=== PATIENT | male | born 1980 | race Caucasian/White ===

== ENCOUNTER 2018-08-25 15:41 | Inpatient (IN) | payer MEDICARE, MEDICAID ==
[~2018-08-25] VITALS: Ht 180.3 cm; Wt 63.7 kg
[2018-08-25] MEDS ORDERED: normal saline 1000ML IV soln IV ONE ×2 (16:00→16:20)
[2018-08-25 16:42] LABS: ALANINE AMINOTRANSFERASE 16 U/L (12-78); ALBUMIN 3.4 G/DL (3.4-5.0); ALBUMIN/GLOBULIN RATIO 0.7 (1.1-1.5); ALKALINE PHOSPHATASE 173 IU/L (46-116); ANION GAP 9 (8-16); ASPARTATE AMINO TRANSFERASE 14 U/L (10-37); BILIRUBIN,TOTAL 0.4 MG/DL (0.1-1.0); BLOOD UREA NITROGEN 16 MG/DL (7-18); BUN/CREATININE RATIO 27.1 (5.4-32.0); CALCIUM 9.1 MG/DL (8.5-10.1); CHLORIDE 101 MMOL/L (99-107); CREATININE 0.59 MG/DL (0.60-1.10); GLUCOSE 94 MG/DL (70-104); POTASSIUM 3.8 MMOL/L (3.5-5.1); SODIUM 138 MMOL/L (135-145); TOTAL CARBON DIOXIDE 27.8 MMOL/L (24-32); TOTAL PROTEIN 8.5 G/DL (6.4-8.2); eGFR > 90 ML/MIN
[2018-08-25 16:46] LABS: BASOPHILS # (AUTO) 0.1 X10'3 (0-0.2); BASOPHILS % (AUTO) 0.8 % (0-1); EOSINOPHILS # (AUTO) 0.4 X10'3 (0-0.9); EOSINOPHILS % (AUTO) 2.8 % (0-6); LYMPHOCYTES # (AUTO) 2.4 X10'3 (1.1-4.8); LYMPHOCYTES % (AUTO) 17.7 % (21-51); MEAN CORPUSCULAR HEMOGLOBIN 24.9 PG (27.0-31.0); MEAN CORPUSCULAR HGB CONC 33.2 % (33.0-36.5); MEAN PLATELET VOLUME 7.6 FL (7.4-10.4); MONOCYTES # (AUTO) 0.8 X10'3 (0-0.9); MONOCYTES % (AUTO) 5.8 % (2-12); NEUTROPHILS # (AUTO) 9.9 X10'3 (1.8-7.7); NEUTROPHILS % (AUTO) 72.9 % (42-75); PLATELET COUNT 505 X10'3 (140-440); RED BLOOD COUNT 4.81 X10'6 (4.70-6.10); RED CELL DISTRIBUTION WIDTH 16.2 % (11.5-14.5); WHITE BLOOD COUNT 13.6 X10'3 (4.5-11.0)
[2018-08-25] MEDS ORDERED: IMIPENEM IV SCH (17:30)
[2018-08-25] MEDS ORDERED: NORMAL SALINE IV SCH (17:30)
[2018-08-25] MEDS ORDERED: CILASTATIN IV SCH (17:30)
[2018-08-25] MEDS: potassium cl 20mEq in 1/2 NS 1,000 ML IV SCH (17:34)
[2018-08-25] MEDS ORDERED: magnesium 4gm in 100ml NS 100 ML IV PRN (17:35)
[2018-08-25] MEDS ORDERED: HYDROcodone/acetaminophen 5mg/325mg tablet PO PRN (17:35)
[2018-08-25] MEDS ORDERED: acetaminophen 325mg tablet PO PRN (17:35)
[2018-08-25] MEDS ORDERED: magnesium 1gm/100ml D5W IVPB 100 ML IV PRN (17:35)
[2018-08-25] MEDS ORDERED: potassium Cl 20 mEq SR tablet PO PRN ×2 (17:35)
[2018-08-25] MEDS ORDERED: magnesium Cl slow-release 64mg tablet PO PRN (17:35)
[2018-08-25] MEDS ORDERED: mag hydrox/Alum hydrox/simeth 30ml oral suspension PO PRN (17:35)
[2018-08-25] MEDS ORDERED: magnesium hydroxide 30ml (MOM) UD suspension PO PRN (17:35)
[2018-08-25] MEDS ORDERED: potassium Cl 40MEQ/NS 500ml 500 ML IV PRN ×2 (17:35)
[2018-08-25] MEDS ORDERED: ondansetron/PF 4mg/2ml inj IV PRN (17:35)
[2018-08-25] MEDS: meropenem inj 1 GM in normal saline 100ml IV soln 100 ML IV SCH (18:12)
[2018-08-25] MEDS ORDERED: HYDROmorphone 1 mg/ml syringe IV ONE ×2 (18:35→20:20)
[2018-08-25] MEDS ORDERED: morphine 2 MG/ML inj. syringe IV PRN (19:05)
[2018-08-25 19:09] LABS: CLARITY,URINE SLIGHTLY CLOUDY (Clear); COLOR,URINE YELLOW (Yellow); GLUCOSE, URINE NEGATIVE (Neg); KETONES,URINE 40 mg/dl (Neg); LEUKOCYTE ESTERASE ,URINE NEGATIVE (Neg); NITRITES, URINE NEGATIVE (Neg); OCCULT BLOOD,URINE NEGATIVE (Neg); PROTEIN,URINE 100 mg/dl (Neg); UROBILINOGEN,URINE 0.2 E.U/dL (0.2-1.0)
[2018-08-25] MEDS ORDERED: BACL10TA PO (19:11)
[2018-08-25] MEDS ORDERED: FENT1PAT7 TOP (19:11)
[2018-08-25] MEDS ORDERED: DIAZ10TA PO (19:11)
[2018-08-25 19:12] LABS: UA COLLECTION TYPE FOLEY CATH
[2018-08-25 19:27] LABS: AMORPHOUS URATES 1+; BACTERIA,URINE FEW /HPF (Neg); MUCUS STRANDS MANY /LPF (Neg); RBC,URINE NONE SEEN /HPF (0-2); SQUAMOUS EPITHELIAL CELL,UR FEW /LPF (FEW); WBC,URINE 0-4 /HPF (0-4)
[2018-08-25 20:00] VITALS: BP 106/55
[2018-08-25 22:00] VITALS: BP 97/53
[2018-08-26] MEDS: meropenem inj 1 GM in normal saline 100ml IV soln 100 ML IV SCH ×3 (01:32→18:35)
[2018-08-26] MEDS ORDERED: pneumococcal 23-VAL P-sac vacc 25 mcg/0.5ml vial IMVAC ONE (01:40)
[2018-08-26] MEDS: HYDROmorphone 1 mg/ml syringe IV PRN ×6 (01:56→22:51)
[2018-08-26 02:00] VITALS: BP 104/62
[2018-08-26] MEDS: potassium cl 20mEq in 1/2 NS 1,000 ML IV SCH ×2 (03:34→07:46)
[2018-08-26 06:00] VITALS: BP 105/64
[2018-08-26] MEDS: enoxaparin 40mg/0.4ml syringe SUBCUT SCH (07:21)
[2018-08-26 07:26] LABS: BASOPHILS # (AUTO) 0.1 X10'3 (0-0.2); BASOPHILS % (AUTO) 0.8 % (0-1); EOSINOPHILS # (AUTO) 0.3 X10'3 (0-0.9); EOSINOPHILS % (AUTO) 4.1 % (0-6); HEMATOCRIT 30.8 % (42.0-52.0); HEMOGLOBIN 9.9 g/dl (14.0-17.9); LYMPHOCYTES # (AUTO) 1.6 X10'3 (1.1-4.8); LYMPHOCYTES % (AUTO) 23.3 % (21-51); MEAN CORPUSCULAR HEMOGLOBIN 24.2 PG (27.0-31.0); MEAN CORPUSCULAR HGB CONC 32.2 % (33.0-36.5); MEAN CORPUSCULAR VOLUME 75.3 FL (78-98); MEAN PLATELET VOLUME 6.9 FL (7.4-10.4); MONOCYTES # (AUTO) 0.7 X10'3 (0-0.9); MONOCYTES % (AUTO) 9.8 % (2-12); NEUTROPHILS # (AUTO) 4.3 X10'3 (1.8-7.7); PLATELET COUNT 366 X10'3 (140-440); RED BLOOD COUNT 4.09 X10'6 (4.70-6.10); RED CELL DISTRIBUTION WIDTH 17.4 % (11.5-14.5)
[2018-08-26 07:55] LABS: ALANINE AMINOTRANSFERASE 16 U/L (12-78); ALBUMIN 2.3 G/DL (3.4-5.0); ALBUMIN/GLOBULIN RATIO 0.6 (1.1-1.5); ALKALINE PHOSPHATASE 136 IU/L (46-116); ANION GAP 6 (8-16); ASPARTATE AMINO TRANSFERASE 16 U/L (10-37); BILIRUBIN,TOTAL 0.2 MG/DL (0.1-1.0); BLOOD UREA NITROGEN 14 MG/DL (7-18); BUN/CREATININE RATIO 23.7 (5.4-32.0); CALCIUM 7.8 MG/DL (8.5-10.1); CHLORIDE 108 MMOL/L (99-107); CREATININE 0.59 MG/DL (0.60-1.10); GLUCOSE 99 MG/DL (70-104); MAGNESIUM 1.7 MG/DL (1.5-2.4); POTASSIUM 4.7 MMOL/L (3.5-5.1); SODIUM 142 MMOL/L (135-145); TOTAL CARBON DIOXIDE 28.3 MMOL/L (24-32); TOTAL PROTEIN 6.4 G/DL (6.4-8.2); eGFR > 90 ML/MIN
[2018-08-26] MEDS: K and/or MAG REPLACEMENT MC SCH (08:00)
[2018-08-26 11:00] VITALS: BP 92/56
[2018-08-26 15:00] VITALS: BP 95/44
[2018-08-26] MEDS ORDERED: sennosides 8.6mg tablet PO PRN (15:50)
[2018-08-26 19:00] VITALS: BP 97/44
[2018-08-26] MEDS: baclofen 10mg tablet PO SCH (20:28)
[2018-08-26] MEDS: lactobacillus rhamnosus 10,000 MMU CELLS/CAPSULE PO SCH (20:28)
[2018-08-26] MEDS: diazepam 5mg tablet PO SCH (20:29)
[2018-08-26 22:00] VITALS: BP 95/55
[2018-08-27] MEDS: meropenem inj 1 GM in normal saline 100ml IV soln 100 ML IV SCH ×3 (01:25→17:41)
[2018-08-27] MEDS: HYDROmorphone 1 mg/ml syringe IV PRN ×5 (02:56→21:40)
[2018-08-27 07:00] VITALS: BP 115/55
[2018-08-27 07:22] LABS: BASOPHILS # (AUTO) 0.2 X10'3 (0-0.2); BASOPHILS % (AUTO) 2.4 % (0-1); EOSINOPHILS # (AUTO) 0.3 X10'3 (0-0.9); EOSINOPHILS % (AUTO) 4.1 % (0-6); HEMATOCRIT 35.9 % (42.0-52.0); HEMOGLOBIN 11.5 g/dl (14.0-17.9); LYMPHOCYTES # (AUTO) 2.2 X10'3 (1.1-4.8); LYMPHOCYTES % (AUTO) 29.8 % (21-51); MEAN CORPUSCULAR HEMOGLOBIN 24.5 PG (27.0-31.0); MEAN CORPUSCULAR HGB CONC 32.1 % (33.0-36.5); MEAN CORPUSCULAR VOLUME 76.4 FL (78-98); MEAN PLATELET VOLUME 7.9 FL (7.4-10.4); MONOCYTES # (AUTO) 0.7 X10'3 (0-0.9); MONOCYTES % (AUTO) 10.1 % (2-12); NEUTROPHILS # (AUTO) 3.9 X10'3 (1.8-7.7); NEUTROPHILS % (AUTO) 53.6 % (42-75); PLATELET COUNT 376 X10'3 (140-440); RED CELL DISTRIBUTION WIDTH 17.7 % (11.5-14.5); WHITE BLOOD COUNT 7.3 X10'3 (4.5-11.0)
[2018-08-27 07:40] LABS: ALANINE AMINOTRANSFERASE 16 U/L (12-78); ALBUMIN 2.8 G/DL (3.4-5.0); ALBUMIN/GLOBULIN RATIO 0.6 (1.1-1.5); ALKALINE PHOSPHATASE 158 IU/L (46-116); ANION GAP 4 (8-16); ASPARTATE AMINO TRANSFERASE 13 U/L (10-37); BILIRUBIN,TOTAL 0.2 MG/DL (0.1-1.0); BLOOD UREA NITROGEN 16 MG/DL (7-18); BUN/CREATININE RATIO 28.1 (5.4-32.0); CALCIUM 8.5 MG/DL (8.5-10.1); CHLORIDE 103 MMOL/L (99-107); CREATININE 0.57 MG/DL (0.60-1.10); GLUCOSE 79 MG/DL (70-104); MAGNESIUM 1.8 MG/DL (1.5-2.4); POTASSIUM 4.7 MMOL/L (3.5-5.1); SODIUM 137 MMOL/L (135-145); TOTAL CARBON DIOXIDE 29.7 MMOL/L (24-32); TOTAL PROTEIN 7.8 G/DL (6.4-8.2); eGFR > 90 ML/MIN
[2018-08-27] MEDS: baclofen 10mg tablet PO SCH ×3 (07:56→21:04)
[2018-08-27] MEDS: multivitamins, therapeutics tablet PO SCH (07:56)
[2018-08-27] MEDS: lactobacillus rhamnosus 10,000 MMU CELLS/CAPSULE PO SCH ×2 (07:56→21:04)
[2018-08-27] MEDS: diazepam 5mg tablet PO SCH ×3 (07:57→21:04)
[2018-08-27] MEDS: enoxaparin 40mg/0.4ml syringe SUBCUT SCH (08:00)
[2018-08-27] MEDS: K and/or MAG REPLACEMENT MC SCH (08:00)
[2018-08-27] MEDS ORDERED: diphenhydrAMINE 50 mg/ml inj IV PRN (09:45)
[2018-08-27] MEDS ORDERED: vancomycin/NS 1 GM ADD-VANTAGE 250 ML IV SCH (10:00)
[2018-08-27] MEDS: polyethylene glycol 3350 17gm powd pack PO SCH (10:25)
[2018-08-27 11:00] VITALS: BP 91/53
[2018-08-27 11:04] LABS: CLARITY,URINE CLEAR (Clear); COLOR,URINE YELLOW (Yellow); GLUCOSE, URINE NEGATIVE (Neg); KETONES,URINE NEGATIVE (Neg); LEUKOCYTE ESTERASE ,URINE NEGATIVE (Neg); NITRITES, URINE NEGATIVE (Neg); OCCULT BLOOD,URINE NEGATIVE (Neg); PROTEIN,URINE NEGATIVE (Neg); UA COLLECTION TYPE FOLEY CATH; UROBILINOGEN,URINE 0.2 E.U/dL (0.2-1.0)
[2018-08-27 15:00] VITALS: BP 92/75
[2018-08-27 19:00] VITALS: BP 106/60
[2018-08-27] MEDS: linezolid 600mg/300ml PREMIX 300 ML IV SCH (21:04)
[2018-08-27 23:00] VITALS: BP 92/52
[2018-08-28] VITALS (9 sets, daily range): BP systolic 87–133; BP diastolic 48–77
[2018-08-28] MEDS: HYDROmorphone 1 mg/ml syringe IV PRN ×6 (01:28→23:57)
[2018-08-28] MEDS: meropenem inj 1 GM in normal saline 100ml IV soln 100 ML IV SCH ×3 (01:28→17:15)
[2018-08-28] MEDS: K and/or MAG REPLACEMENT MC SCH (08:00)
[2018-08-28] MEDS: polyethylene glycol 3350 17gm powd pack PO SCH (09:03)
[2018-08-28] MEDS: multivitamins, therapeutics tablet PO SCH (09:04)
[2018-08-28] MEDS: diazepam 5mg tablet PO SCH ×3 (09:05→21:49)
[2018-08-28] MEDS: lactobacillus rhamnosus 10,000 MMU CELLS/CAPSULE PO SCH ×2 (09:05→19:47)
[2018-08-28] MEDS: baclofen 10mg tablet PO SCH ×3 (09:06→21:49)
[2018-08-28] MEDS: enoxaparin 40mg/0.4ml syringe SUBCUT SCH (09:07)
[2018-08-28 09:08] LABS: BASOPHILS % (AUTO) 0.5 % (0-1); EOSINOPHILS # (AUTO) 0.3 X10'3 (0-0.9); EOSINOPHILS % (AUTO) 3.7 % (0-6); HEMATOCRIT 32.2 % (42.0-52.0); HEMOGLOBIN 10.4 g/dl (14.0-17.9); LYMPHOCYTES # (AUTO) 1.8 X10'3 (1.1-4.8); LYMPHOCYTES % (AUTO) 25.6 % (21-51); MEAN CORPUSCULAR HEMOGLOBIN 24.5 PG (27.0-31.0); MEAN CORPUSCULAR HGB CONC 32.1 % (33.0-36.5); MEAN CORPUSCULAR VOLUME 76.2 FL (78-98); MEAN PLATELET VOLUME 7.3 FL (7.4-10.4); MONOCYTES # (AUTO) 0.8 X10'3 (0-0.9); MONOCYTES % (AUTO) 11.1 % (2-12); NEUTROPHILS # (AUTO) 4.2 X10'3 (1.8-7.7); NEUTROPHILS % (AUTO) 59.1 % (42-75); PLATELET COUNT 375 X10'3 (140-440); RED BLOOD COUNT 4.23 X10'6 (4.70-6.10); WHITE BLOOD COUNT 7.1 X10'3 (4.5-11.0)
[2018-08-28] MEDS: linezolid 600mg/300ml PREMIX 300 ML IV SCH ×2 (09:08→19:47)
[2018-08-28 09:15] LABS: ALBUMIN 2.5 G/DL (3.4-5.0); ANION GAP 5 (8-16); BLOOD UREA NITROGEN 26 MG/DL (7-18); BUN/CREATININE RATIO 44.8 (5.4-32.0); CALCIUM 8.3 MG/DL (8.5-10.1); CHLORIDE 103 MMOL/L (99-107); CREATININE 0.58 MG/DL (0.60-1.10); GLUCOSE 98 MG/DL (70-104); MAGNESIUM 1.8 MG/DL (1.5-2.4); POTASSIUM 4.3 MMOL/L (3.5-5.1); SODIUM 140 MMOL/L (135-145); TOTAL CARBON DIOXIDE 32.5 MMOL/L (24-32); eGFR > 90 ML/MIN
[2018-08-28] MEDS ORDERED: VANCOMYCIN LEVEL IV NR (09:30)
[2018-08-29] VITALS (7 sets, daily range): BP systolic 96–134; BP diastolic 55–77
[2018-08-29] MEDS: meropenem inj 1 GM in normal saline 100ml IV soln 100 ML IV SCH ×3 (00:57→17:33)
[2018-08-29 07:32] LABS: ALBUMIN 2.5 G/DL (3.4-5.0); ANION GAP 6 (8-16); BLOOD UREA NITROGEN 22 MG/DL (7-18); BUN/CREATININE RATIO 37.3 (5.4-32.0); CALCIUM 8.2 MG/DL (8.5-10.1); CHLORIDE 103 MMOL/L (99-107); CREATININE 0.59 MG/DL (0.60-1.10); GLUCOSE 101 MG/DL (70-104); MAGNESIUM 1.7 MG/DL (1.5-2.4); POTASSIUM 4.4 MMOL/L (3.5-5.1); SODIUM 140 MMOL/L (135-145); TOTAL CARBON DIOXIDE 30.9 MMOL/L (24-32); eGFR > 90 ML/MIN
[2018-08-29] MEDS: linezolid 600mg/300ml PREMIX 300 ML IV SCH (07:39)
[2018-08-29] MEDS: baclofen 10mg tablet PO SCH ×3 (07:42→21:43)
[2018-08-29] MEDS: lactobacillus rhamnosus 10,000 MMU CELLS/CAPSULE PO SCH ×2 (07:42→20:16)
[2018-08-29] MEDS: multivitamins, therapeutics tablet PO SCH (07:42)
[2018-08-29] MEDS: diazepam 5mg tablet PO SCH ×3 (07:43→21:42)
[2018-08-29] MEDS: polyethylene glycol 3350 17gm powd pack PO SCH (07:43)
[2018-08-29] MEDS: HYDROmorphone 1 mg/ml syringe IV PRN ×4 (07:44→21:42)
[2018-08-29] MEDS: K and/or MAG REPLACEMENT MC SCH (08:00)
[2018-08-29] MEDS: enoxaparin 40mg/0.4ml syringe SUBCUT SCH (08:00)
[2018-08-29] MEDS: linezolid 600mg tablet PO SCH (20:17)
[2018-08-30] MEDS: meropenem inj 1 GM in normal saline 100ml IV soln 100 ML IV SCH ×3 (00:39→17:18)
[2018-08-30] MEDS: HYDROmorphone 1 mg/ml syringe IV PRN ×5 (01:48→21:02)
[2018-08-30 02:53] VITALS: BP 98/54
[2018-08-30 05:10] LABS: BASOPHILS % (AUTO) 0.8 % (0-1); EOSINOPHILS # (AUTO) 0.4 X10'3 (0-0.9); EOSINOPHILS % (AUTO) 6.5 % (0-6); HEMATOCRIT 32.1 % (42.0-52.0); HEMOGLOBIN 10.4 g/dl (14.0-17.9); LYMPHOCYTES # (AUTO) 1.6 X10'3 (1.1-4.8); LYMPHOCYTES % (AUTO) 25.8 % (21-51); MEAN CORPUSCULAR HEMOGLOBIN 24.5 PG (27.0-31.0); MEAN CORPUSCULAR HGB CONC 32.2 % (33.0-36.5); MEAN PLATELET VOLUME 6.9 FL (7.4-10.4); MONOCYTES # (AUTO) 0.7 X10'3 (0-0.9); MONOCYTES % (AUTO) 11.2 % (2-12); NEUTROPHILS # (AUTO) 3.5 X10'3 (1.8-7.7); NEUTROPHILS % (AUTO) 55.7 % (42-75); PLATELET COUNT 354 X10'3 (140-440); RED BLOOD COUNT 4.23 X10'6 (4.70-6.10); RED CELL DISTRIBUTION WIDTH 16.8 % (11.5-14.5); WHITE BLOOD COUNT 6.3 X10'3 (4.5-11.0)
[2018-08-30 05:18] LABS: ALBUMIN 2.5 G/DL (3.4-5.0); ANION GAP 5 (8-16); BLOOD UREA NITROGEN 18 MG/DL (7-18); CHLORIDE 104 MMOL/L (99-107); CREATININE 0.53 MG/DL (0.60-1.10); GLUCOSE 98 MG/DL (70-104); MAGNESIUM 1.7 MG/DL (1.5-2.4); POTASSIUM 4.3 MMOL/L (3.5-5.1); SODIUM 142 MMOL/L (135-145); TOTAL CARBON DIOXIDE 33.4 MMOL/L (24-32); eGFR > 90 ML/MIN
[2018-08-30 06:00] VITALS: BP 102/58
[2018-08-30] MEDS: polyethylene glycol 3350 17gm powd pack PO SCH (07:17)
[2018-08-30] MEDS: multivitamins, therapeutics tablet PO SCH (07:19)
[2018-08-30] MEDS: linezolid 600mg tablet PO SCH ×2 (07:20→20:07)
[2018-08-30] MEDS: lactobacillus rhamnosus 10,000 MMU CELLS/CAPSULE PO SCH ×2 (07:20→20:07)
[2018-08-30] MEDS: baclofen 10mg tablet PO SCH ×3 (07:20→20:07)
[2018-08-30] MEDS: diazepam 5mg tablet PO SCH ×3 (07:20→20:07)
[2018-08-30] MEDS: K and/or MAG REPLACEMENT MC SCH (08:00)
[2018-08-30] MEDS: enoxaparin 40mg/0.4ml syringe SUBCUT SCH (08:00)
[2018-08-30 11:00] VITALS: BP_SYST 137; BP_SYST 91; BP_DIAS 55; BP_DIAS 82
[2018-08-30 15:00] VITALS: BP 105/62
[2018-08-30 18:00] VITALS: BP 110/63
[2018-08-30 22:00] VITALS: BP 99/58
[2018-08-31] VITALS: BP 96/54
[2018-08-31] MEDS: HYDROmorphone 1 mg/ml syringe IV PRN ×5 (01:05→22:07)
[2018-08-31] MEDS: meropenem inj 1 GM in normal saline 100ml IV soln 100 ML IV SCH ×3 (01:26→17:38)
[2018-08-31 07:30] VITALS: BP 108/56
[2018-08-31] MEDS: multivitamins, therapeutics tablet PO SCH (08:00)
[2018-08-31] MEDS: polyethylene glycol 3350 17gm powd pack PO SCH ×2 (08:00→14:40)
[2018-08-31] MEDS: enoxaparin 40mg/0.4ml syringe SUBCUT SCH (08:00)
[2018-08-31] MEDS: baclofen 10mg tablet PO SCH ×3 (08:00→20:59)
[2018-08-31] MEDS: K and/or MAG REPLACEMENT MC SCH (08:00)
[2018-08-31] MEDS: diazepam 5mg tablet PO SCH ×3 (08:00→20:59)
[2018-08-31 09:28] LABS: ALBUMIN 2.6 G/DL (3.4-5.0); ANION GAP 7 (8-16); BLOOD UREA NITROGEN 23 MG/DL (7-18); BUN/CREATININE RATIO 38.3 (5.4-32.0); CALCIUM 8.5 MG/DL (8.5-10.1); CHLORIDE 104 MMOL/L (99-107); GLUCOSE 109 MG/DL (70-104); MAGNESIUM 1.5 MG/DL (1.5-2.4); POTASSIUM 4.4 MMOL/L (3.5-5.1); SODIUM 143 MMOL/L (135-145); eGFR > 90 ML/MIN
[2018-08-31] MEDS: lactobacillus rhamnosus 10,000 MMU CELLS/CAPSULE PO SCH ×2 (09:31→20:58)
[2018-08-31 11:00] VITALS: BP 101/58
[2018-08-31] MEDS: linezolid 600mg tablet PO SCH ×2 (12:04→20:59)
[2018-08-31 16:27] LABS: CLARITY,URINE CLEAR (Clear); COLOR,URINE YELLOW (Yellow); GLUCOSE, URINE NEGATIVE (Neg); KETONES,URINE NEGATIVE (Neg); LEUKOCYTE ESTERASE ,URINE NEGATIVE (Neg); NITRITES, URINE NEGATIVE (Neg); OCCULT BLOOD,URINE NEGATIVE (Neg); PROTEIN,URINE NEGATIVE (Neg); UROBILINOGEN,URINE 0.2 E.U/dL (0.2-1.0)
[2018-08-31 16:37] LABS: UA COLLECTION TYPE NON-SPECIFIED
[2018-08-31 18:00] VITALS: BP 111/57
[2018-09-01] VITALS: BP 97/56
[2018-09-01] MEDS: meropenem inj 1 GM in normal saline 100ml IV soln 100 ML IV SCH ×2 (00:28→09:02)
[2018-09-01] MEDS: HYDROmorphone 1 mg/ml syringe IV PRN ×5 (02:20→14:42)
[2018-09-01 06:06] LABS: ALBUMIN 2.6 G/DL (3.4-5.0); ANION GAP 6 (8-16); BLOOD UREA NITROGEN 21 MG/DL (7-18); BUN/CREATININE RATIO 31.8 (5.4-32.0); CALCIUM 8.2 MG/DL (8.5-10.1); CHLORIDE 105 MMOL/L (99-107); CREATININE 0.66 MG/DL (0.60-1.10); GLUCOSE 94 MG/DL (70-104); MAGNESIUM 1.6 MG/DL (1.5-2.4); POTASSIUM 4.2 MMOL/L (3.5-5.1); SODIUM 142 MMOL/L (135-145); TOTAL CARBON DIOXIDE 31.5 MMOL/L (24-32); eGFR > 90 ML/MIN
[2018-09-01] MEDS: enoxaparin 40mg/0.4ml syringe SUBCUT SCH (08:00)
[2018-09-01 08:41] VITALS: BP 115/60
[2018-09-01] MEDS: K and/or MAG REPLACEMENT MC SCH (08:44)
[2018-09-01] MEDS: lactobacillus rhamnosus 10,000 MMU CELLS/CAPSULE PO SCH (08:59)
[2018-09-01] MEDS: baclofen 10mg tablet PO SCH ×2 (08:59→13:20)
[2018-09-01] MEDS: polyethylene glycol 3350 17gm powd pack PO SCH (09:00)
[2018-09-01] MEDS: multivitamins, therapeutics tablet PO SCH (09:00)
[2018-09-01] MEDS: diazepam 5mg tablet PO SCH ×2 (09:01→13:20)
[2018-09-01] MEDS: linezolid 600mg tablet PO SCH (09:01)
[2018-09-01] MEDS ORDERED: LINE600T32 PO (09:57)
[2018-09-01 18:30] VITALS: BP 106/61
== END 2018-09-01 20:00 | disposition home or self-care (01) | DRG 871 ==
LOC: ER 15:41 → ED HOLD 17:34 → PCU 3S 21:18 → SUR 3N 08-30 23:59
PROVIDERS: ADMIT Internal Medicine; ATTEND Family Medicine
PROC: 3E02340 Introduction of Influenza Vaccine into Muscle, Percutaneous Approach (ICD-10-PCS; principal; 2018-08-28)
PROC: 3E0234Z Introduction of Serum, Toxoid and Vaccine into Muscle, Percutaneous Approach (ICD-10-PCS; 2018-08-28)
DX: A41.9 Sepsis, unspecified organism (principal); L89.153 Pressure ulcer of sacral region, stage 3; N39.0 Urinary tract infection, site not specified; G82.20 Paraplegia, unspecified; L03.317 Cellulitis of buttock; B96.5 Pseudomonas (aeruginosa) (mallei) (pseudomallei) as the cause of diseases classified elsewhere; Z93.3 Colostomy status; B95.8 Unspecified staphylococcus as the cause of diseases classified elsewhere; K59.00 Constipation, unspecified; L89.159 Pressure ulcer of sacral region, unspecified stage; D64.9 Anemia, unspecified; F17.200 Nicotine dependence, unspecified, uncomplicated; N31.9 Neuromuscular dysfunction of bladder, unspecified; Z88.0 Allergy status to penicillin; Z79.899 Other long term (current) drug therapy; Z23 Encounter for immunization
CPT/HCPCS: 36415; 80048; 80053; 81001; 81003; 83605; 83735; 84145; 85025; 87040; 87070; 87077; 87186; 99285; A4421; A6251; A6257; G0378; J0743; J1170; J1200; J1650; J2020; J2185; J3370; J7030; Q2037

== ENCOUNTER 2019-05-29 22:30 | Inpatient (IN) | payer MEDICARE, MEDICAID ==
[~2019-05-29] VITALS: Ht 182.9 cm; Wt 61.4 kg
[~2019-05-29 22:30] MED LIST: BACL10TA PO; DIAZ10TA PO; FENT1PAT7 TOP; LINE600T14 PO
[2019-05-29] MEDS ORDERED: morphine 4 MG/ML inj SYRINge IV STA (23:12)
[2019-05-29] MEDS ORDERED: ondansetron/PF 4mg/2ml inj IV STA (23:12)
[2019-05-29] MEDS ORDERED: normal saline 1000ML IV soln IVB ONE (23:15)
--- NOTE | 2019-05-29 23:41 | NUR ---
WOUNDS CLEANED WITH NS, ROUGHLY 400MLS
[2019-05-30] MEDS ORDERED: NO HOME MEDS (00:45)
[2019-05-30 01:26] LABS: BASOPHILS # (AUTO) 0.1 X10'3 (0-0.2); BASOPHILS % (AUTO) 0.8 % (0-1); EOSINOPHILS # (AUTO) 0.2 X10'3 (0-0.9); EOSINOPHILS % (AUTO) 3.3 % (0-6); HEMATOCRIT 29.5 % (42.0-52.0); HEMOGLOBIN 9.4 g/dl (14.0-17.9); LYMPHOCYTES # (AUTO) 1.9 X10'3 (1.1-4.8); LYMPHOCYTES % (AUTO) 26.5 % (21-51); MEAN CORPUSCULAR HEMOGLOBIN 22.8 PG (27.0-31.0); MEAN CORPUSCULAR HGB CONC 31.8 g/dL (33.0-36.5); MEAN CORPUSCULAR VOLUME 71.6 FL (78-98); MEAN PLATELET VOLUME 6.9 FL (7.4-10.4); MONOCYTES # (AUTO) 0.8 X10'3 (0-0.9); NEUTROPHILS # (AUTO) 4.1 X10'3 (1.8-7.7); NEUTROPHILS % (AUTO) 58.4 % (42-75); PLATELET COUNT 371 X10'3 (140-440); RED BLOOD COUNT 4.12 X10'6 (4.70-6.10); RED CELL DISTRIBUTION WIDTH 19.5 % (11.5-14.5); WHITE BLOOD COUNT 7.1 X10'3 (4.5-11.0)
[2019-05-30] MEDS ORDERED: HYDROmorphone inj. 0.5 MG/0.5 ML DISP.SYRIN IV PRN ×2 (01:30→01:55)
[2019-05-30] MEDS ORDERED: acetaminophen 325mg tablet PO PRN (01:30)
[2019-05-30] MEDS ORDERED: HYDROmorphone 1 mg/ml syringe IV PRN ×2 (01:30→01:58)
[2019-05-30] MEDS ORDERED: mag hydrox/Alum hydrox/simeth 30ml oral suspension PO PRN (01:30)
[2019-05-30] MEDS ORDERED: vancomycin inj 1,000 MG in normal saline 250ml IV soln 250 ML IV ONE (01:40)
[2019-05-30 01:43] LABS: ALANINE AMINOTRANSFERASE 11 U/L (12-78); ALBUMIN 2.4 G/DL (3.4-5.0); ALBUMIN/GLOBULIN RATIO 0.5 (1.1-1.5); ALKALINE PHOSPHATASE 127 IU/L (46-116); ANION GAP 7 (8-16); ASPARTATE AMINO TRANSFERASE 10 U/L (10-37); BILIRUBIN,TOTAL 0.2 MG/DL (0.1-1.0); BLOOD UREA NITROGEN 13 MG/DL (7-18); BUN/CREATININE RATIO 24.1 (5.4-32.0); CALCIUM 8.1 MG/DL (8.5-10.1); CHLORIDE 107 MMOL/L (99-107); CREATININE 0.54 MG/DL (0.60-1.10); GLUCOSE 96 MG/DL (70-104); POTASSIUM 3.6 MMOL/L (3.5-5.1); SODIUM 142 MMOL/L (135-145); TOTAL CARBON DIOXIDE 27.9 MMOL/L (24-32); TOTAL PROTEIN 7.3 G/DL (6.4-8.2); eGFR > 90 ML/MIN
[2019-05-30] MEDS: vancomycin/NS 1 GM ADD-VANTAGE 250 ML IV ONE ×2 (02:10→02:25)
--- NOTE | 2019-05-30 03:00 | NUR ---
I have rec'd report from WELDER ASSEMBLER who stated she took all pictures needed. She stated Dr. Canales had ordered vanco and then canceled it. pt arrived via [place] and transferred into bed. vitals stable. Pt hungry, snacks given. pt stated his bother helps take care of him. Pt also wants to be tested for all STDs, stated he had a cold sore or herpes on lip that is now gone. It is unclear whether he engages in risky sexual behavior, although he stated he was around someone with herpes. He also wants abx to "kill whatever bugs he has that we don't even know about before he goes home".
[2019-05-30] MEDS: LORazepam 2 mg/ml vial IV PRN ×2 (03:13→08:54)
[2019-05-30 03:16] VITALS: BP 105/59
--- NOTE | 2019-05-30 03:26 | NUR ---
spoke with Dr. toledo re ABX. He doesn't feel pt needs it at this time, Patient is insistent on getting it. MD notified, waiting for response.
[2019-05-30] MEDS: diphenhydrAMINE 50 mg/ml inj IV PRN (03:39)
[2019-05-30] MEDS ORDERED: vancomycin/NS 1 GM ADD-VANTAGE 250 ML IV ONE (03:40)
--- NOTE | 2019-05-30 03:47 | NUR ---
MD Canales stated to give vanco with 50 mg benadryl prior
--- NOTE | 2019-05-30 04:30 | NUR ---
pt trying to rest, no sign of yo at this time
--- NOTE | 2019-05-30 06:15 | NUR ---
Problems reprioritized. Patient report given, questions answered & plan of care reviewed with Gustavo Ricardo.
[2019-05-30 06:30] VITALS: BP 115/72
--- NOTE | 2019-05-30 06:32 | NUR ---
Patient in room PCU 3010. I have received report from Kim RUSH and had the opportunity to ask questions and assume patient care.
[2019-05-30] MEDS ORDERED: CefTRIAXone/D5W-Rocephin 1gm 50 ML IV SCH (08:00)
[2019-05-30] MEDS: lactobacillus rhamnosus 10,000 MMU CELLS/CAPSULE PO SCH ×2 (08:54→19:05)
[2019-05-30] MEDS: HYDROmorphone 1 mg/ml syringe IV PRN ×4 (10:08→23:29)
[2019-05-30 11:00] VITALS: BP 110/91
--- NOTE | 2019-05-30 11:32 | NUR ---
Patient is IV in left hand placed at [facility] on 05/29/19. Patient refuses to have no IV placed at this time, and did state that he is a hard stick. If current IV stops working, will page PICC nurse for extended.
[2019-05-30] MEDS ORDERED: vancomycin/NS 1 GM ADD-VANTAGE 250 ML IV SCH (12:00)
--- NOTE | 2019-05-30 12:00 | NUR ---
PRESSURE ULCER EDUCATION: DEFINITION: A pressure ulcer is an area of skin that breaks down when you stay in one position too long. The constant pressure against the skin reduces the blood flow to that area and the affected tissue dies. CAUSES: "Being bedridden or in a wheelchair "Fragile skin "Having a chronic condition, such as diabetes or vascular disease "Inability to move certain parts of your body without assistance "Older age "Incontinence of urine or stool SYMPTOMS: "A reddened area that DOES NOT turn white when pressed on - this can be the beginning of a pressure ulcer "A blister, deep sore or a crater - these can be advanced pressure ulcers FIRST AID: "Relieve the pressure on this area "Keep the area clean and dry "Call your primary doctor if you see any of the above symptoms "DO NOT massage the area "DO NOT use a donut shaped or ring shaped pillow- these actually interfere with the blood flow and cause complications PREVENTION: "Check for pressure ulcers everyday "Change position at least every two hours to relieve pressure "Use items that help relieve pressure- pillows, sheepskin, foam padding, and powders. "Keep skin clean and dry "Eat healthy well balanced meals "Exercise daily IF YOU SEE ANY OF THESE SYMPTOMS WHILE IN THE HOSPITAL - TELL YOUR NURSE IMMEDIATELY. IF YOU SEE ANY OF THESE SYMPTOMS WHILE AT HOME OR HAVE ANY QUESTIONS OR CONCERNS ABOUT PRESSURE ULCERS - CALL YOUR PRIMARY DOCTOR IMMEDIATELY. Addendum: 05/30/19 at 1200 by Mkiey Begum RN Amended: Links added.
[2019-05-30 15:00] VITALS: BP 96/61
--- NOTE | 2019-05-30 15:00 | NUR ---
Extended PIV inserted to left upper arm x 1 attempt using ultrasound. Karla well Addendum: 05/30/19 at 1710 by Rukhsana Cordova RN Amended: Links added.
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
[2019-05-30] MEDS: clindamycin 600mg/D5W 50ml 50 ML IV SCH ×2 (15:59→23:51)
--- NOTE | 2019-05-30 16:02 | NUR ---
Patient is refusing his Cleocin antibiotic and is noncompliant with care and medications. Paged Nola PAGER ID: [phone] MESSAGE: Ling blackmon [phone]. Baldomero Anand 3010. ANNIE that patient is refusing Cleocin antibiotic and would like to speak to you about his medications when you have the chance. Thank you
[2019-05-30] MEDS: LORazepam 1 MG tablet PO PRN ×2 (16:17→20:19)
--- NOTE | 2019-05-30 17:47 | NUR ---
Patient wanted to speak with this nurse regarding medications, wound healing, and becoming "stir crazy." This RN and another nurse went and spoke to patient. Patient needed lots of reminding regarding MD's orders, and the purpose- education provided. Also offered the patient books, magazines, and if he wanted to speak to hospital director of development and marketing. Patient refused. Repositioned patient as well to help make him more comfortable. Patient also is stating that he does not believe medications were given, specifically ativan and dilaudid, when they were. Will pass onto retail shift supervisor that I recommend that nurses have a witness when they go to speak with him regarding health concerns/medications, etc.
--- NOTE | 2019-05-30 18:16 | NUR ---
Problems reprioritized. Patient report given, questions answered & plan of care reviewed with Kim RUSH and Nilda RUSH.
--- NOTE | 2019-05-30 18:21 | NUR ---
Patient in room PCU 3010. I have received report from Ling RUSH and had the opportunity to ask questions and assume patient care.
[2019-05-30] MEDS: ondansetron/PF 4mg/2ml inj IV PRN (18:59)
[2019-05-30 19:00] VITALS: BP 104/53
[2019-05-30 22:00] VITALS: BP 121/62
[2019-05-31] MEDS: LORazepam 1 MG tablet PO PRN ×3 (00:40→16:55)
[2019-05-31] MEDS: ondansetron/PF 4mg/2ml inj IV PRN ×3 (01:03→18:51)
[2019-05-31 02:00] VITALS: BP 105/70
[2019-05-31] MEDS ORDERED: VANCOMYCIN LEVEL IV ONE (03:30)
[2019-05-31] MEDS: HYDROmorphone 1 mg/ml syringe IV PRN ×5 (03:33→21:23)
--- NOTE | 2019-05-31 05:17 | NUR ---
Patient has gotten very little sleep throughout the night. He has been on his call light about every ten minutes. He asks for pain and anxiety medication very frequently, always way before they are due and is reminded frequently of his orders and times are written on the board of when his next available doses are due. He is very forgetful and is reoriented often. He states that he is bored and that is part of the reason that he keeps calling and he is educated on appropriate use of the call light system. Wounds dressings changed several times during the shift due to patient moving around in bed frequently and dressings coming undone. Otherwise patient has been stable. Will continue to monitor.
--- NOTE | 2019-05-31 05:43 | NUR ---
Orientee documentation: I have reviewed and agree with all interventions, assessments performed and documented by Nilda RUSH. Orientee Medication Administration: For this medication-pass time frame, all medication were reviewed, dispensed, administered and documented per hospital policy by Nilda RUSH.
--- NOTE | 2019-05-31 06:23 | NUR ---
Problems reprioritized. Patient report given, questions answered & plan of care reviewed with Ronit RUSH.
--- NOTE | 2019-05-31 06:35 | NUR ---
Patient in room PCU 3010. I have received report from Kim RUSH and had the opportunity to ask questions and assume patient care.
[2019-05-31 07:00] VITALS: BP 110/67
[2019-05-31] MEDS: JUVEN Smoothie Arginine/Glut./Ca2+Bmb (Juven 19.3pkt) 240ml cup PO SCH ×2 (07:30→12:30)
[2019-05-31] MEDS: clindamycin 600mg/D5W 50ml 50 ML IV SCH (08:00)
[2019-05-31] MEDS: lactobacillus rhamnosus 10,000 MMU CELLS/CAPSULE PO SCH ×2 (08:02→19:54)
--- NOTE | 2019-05-31 08:40 | NUR ---
Pt refused Clindamycin despite pt education. Dr. Vaca is aware.
[2019-05-31] MEDS ORDERED: pneumococcal 23-VAL P-sac vacc 25 mcg/0.5ml vial IMVAC ONE (10:00)
[2019-05-31] MEDS ORDERED: HYDROcodone/acetaminophen 5mg/325mg tablet PO PRN (10:30)
[2019-05-31 11:00] VITALS: BP 119/58
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
--- NOTE | 2019-05-31 12:07 | NUR ---
Problems reprioritized. Patient report given, questions answered & plan of care reviewed with Amaury RUSH.
[2019-05-31] MEDS: HYDROcodone/acetaminophen 10/325mg tab PO PRN ×3 (14:58→23:22)
[2019-05-31] MEDS: vancomycin/NS 1 GM ADD-VANTAGE 250 ML IV SCH ×2 (14:58→19:54)
[2019-05-31 15:00] VITALS: BP 109/77
--- NOTE | 2019-05-31 15:18 | NUR ---
Paged Dr. Vaca PAGER ID: [phone] MESSAGE: Amaury RUSH [phone] Vince Turner: Pt acting increasingly stranger. Impulsive. Flight of ideas. States he is a child and if he allowed himself to be an adult he would want to shoot things. I'm concerned about sharp objects, mental status
--- NOTE | 2019-05-31 18:20 | NUR ---
Patient in room PCU 3010. I have received report from Amaury RUSH and had the opportunity to ask questions and assume patient care.
--- NOTE | 2019-05-31 18:29 | NUR ---
Problems reprioritized. Patient report given, questions answered & plan of care reviewed with Hua RN.
[2019-05-31 19:00] VITALS: BP 110/65
[2019-05-31] MEDS: diphenhydrAMINE 50 mg/ml inj IV PRN (19:54)
[2019-05-31 23:00] VITALS: BP 115/65
[2019-06-01] MEDS: HYDROmorphone 1 mg/ml syringe IV PRN ×2 (01:19→06:38)
[2019-06-01] MEDS: Melatonin 3mg tablet PO PRN (01:19)
[2019-06-01 03:00] VITALS: BP 122/62
[2019-06-01] MEDS: HYDROcodone/acetaminophen 10/325mg tab PO PRN ×3 (03:55→22:58)
[2019-06-01] MEDS: LORazepam 1 MG tablet PO PRN ×2 (03:55→22:58)
[2019-06-01] MEDS: diphenhydrAMINE 50 mg/ml inj IV PRN ×3 (03:56→19:58)
[2019-06-01] MEDS: vancomycin/NS 1 GM ADD-VANTAGE 250 ML IV SCH ×3 (03:56→20:18)
[2019-06-01 06:00] VITALS: BP 102/59
--- NOTE | 2019-06-01 06:11 | NUR ---
Problems reprioritized. Patient report given, questions answered & plan of care reviewed with Adiel RUSH.
--- NOTE | 2019-06-01 06:11 | NUR ---
Patient in room PCU 3010. I have received report from ADRI Sequeira and had the opportunity to ask questions and assume patient care.
[2019-06-01] MEDS: JUVEN Smoothie Arginine/Glut./Ca2+Bmb (Juven 19.3pkt) 240ml cup PO SCH ×2 (07:30→13:04)
--- NOTE | 2019-06-01 08:09 | NUR ---
PAGER ID: [phone] MESSAGE: RM [phone] Vince Turner: Is wanting something other than [place] (feels it keeps him up). Also, says he is getting itchy after Vanco despite getting Benadryl before. ADRI Chun Ext [id number]
--- NOTE | 2019-06-01 08:13 | NUR ---
PAGER ID: [phone] MESSAGE: RM [phone] Vince Turner: Wants Ativan for anxiety, however it is not due for another 4hours. Do you want to give another anxiety med or change the timing or just leave as is? ADRI Chun Ext [id number]
[2019-06-01] MEDS: lactobacillus rhamnosus 10,000 MMU CELLS/CAPSULE PO SCH ×2 (08:24→19:58)
[2019-06-01] MEDS: enoxaparin 40mg/0.4ml syringe SUBCUT SCH (08:24)
[2019-06-01] MEDS ORDERED: morphine 4 MG/ML inj SYRINge IV ONE (09:45)
--- NOTE | 2019-06-01 10:28 | NUR ---
Refused sacral wound cultures at 1000.
--- NOTE | 2019-06-01 10:59 | NUR ---
PAGER ID: [phone] MESSAGE: RM [phone] Vince Turner: Refused cultures at this time: Also constantly asking for pain meds despite get Dilaudid, [facility] and morphine today. Last got morphine at 10am. Still asking for pain meds. ADRI Chun Ext [id number]
[2019-06-01 11:00] VITALS: BP 109/55
[2019-06-01] MEDS ORDERED: naloxone 0.4 mg/ml inj IV PRN (11:15)
[2019-06-01] MEDS ORDERED: CADD PCA waste documentation MC PRN (11:15)
[2019-06-01] MEDS ORDERED: HYDROcodone/acetaminophen 5mg/325mg tablet PO PRN (11:20)
[2019-06-01] MEDS: HYDROmorphone 1 mg/ml syringe IV SCH ×4 (11:34→19:58)
[2019-06-01] MEDS ORDERED: HYDROmorphone/NS 1 mg/ml CADD 50 ML IV SCH (13:00)
--- NOTE | 2019-06-01 14:01 | NUR ---
PAGER ID: [phone] MESSAGE: RM [phone] Vince Turner was inquiring about a muscle relaxer if he could get one. ADRI Chun Ext [phone]
[2019-06-01 15:00] VITALS: BP 106/56
--- NOTE | 2019-06-01 15:45 | NUR ---
PAGER ID: [phone] MESSAGE: RM [phone] Vince Turner: Went to give Flexeril, pt wants it to be 20. Also, he wants Benadryl after his vanco (told him it was Q6hrs), unless you want a before and after dose. ADRI Chun Ext [id number]
[2019-06-01 18:00] VITALS: BP 112/68
--- NOTE | 2019-06-01 18:26 | NUR ---
Problems reprioritized. Patient report given, questions answered & plan of care reviewed with ADRI Schneider.
[2019-06-01] MEDS ORDERED: VANCOMYCIN LEVEL IV NR (19:30)
[2019-06-01] MEDS: cyclobenzaprine 10mg tablet PO PRN (21:22)
[2019-06-01] MEDS: docusate sod 100mg capsule PO PRN (21:22)
[2019-06-01] MEDS: ondansetron/PF 4mg/2ml inj IV PRN (21:22)
[2019-06-01 23:00] VITALS: BP 99/57
[2019-06-02] MEDS: HYDROmorphone 1 mg/ml syringe IV SCH ×9 (00:19→23:13)
[2019-06-02 02:00] VITALS: BP 104/41
[2019-06-02] MEDS: diphenhydrAMINE 50 mg/ml inj IV PRN ×5 (04:16→22:14)
[2019-06-02] MEDS: vancomycin/NS 1 GM ADD-VANTAGE 250 ML IV SCH ×3 (04:16→20:00)
[2019-06-02 06:00] VITALS: BP 99/59
--- NOTE | 2019-06-02 06:00 | NUR ---
Patient in room PCU 3010. I have received report from Wyatt RUSH and had the opportunity to ask questions and assume patient care.
[2019-06-02 07:03] LABS: BASOPHILS # (AUTO) 0.1 X10'3 (0-0.2); BASOPHILS % (AUTO) 0.8 % (0-1); EOSINOPHILS # (AUTO) 0.3 X10'3 (0-0.9); EOSINOPHILS % (AUTO) 4.6 % (0-6); HEMATOCRIT 35.6 % (42.0-52.0); HEMOGLOBIN 11.4 g/dl (14.0-17.9); LYMPHOCYTES # (AUTO) 1.8 X10'3 (1.1-4.8); LYMPHOCYTES % (AUTO) 23.9 % (21-51); MEAN CORPUSCULAR HEMOGLOBIN 22.8 PG (27.0-31.0); MEAN CORPUSCULAR HGB CONC 31.9 g/dL (33.0-36.5); MEAN CORPUSCULAR VOLUME 71.7 FL (78-98); MEAN PLATELET VOLUME 6.8 FL (7.4-10.4); MONOCYTES # (AUTO) 0.6 X10'3 (0-0.9); MONOCYTES % (AUTO) 8.3 % (2-12); NEUTROPHILS # (AUTO) 4.6 X10'3 (1.8-7.7); NEUTROPHILS % (AUTO) 62.4 % (42-75); PLATELET COUNT 425 X10'3 (140-440); RED BLOOD COUNT 4.97 X10'6 (4.70-6.10); RED CELL DISTRIBUTION WIDTH 18.8 % (11.5-14.5); WHITE BLOOD COUNT 7.4 X10'3 (4.5-11.0)
[2019-06-02 07:07] LABS: ALANINE AMINOTRANSFERASE 19 U/L (12-78); ALBUMIN 2.9 G/DL (3.4-5.0); ALBUMIN/GLOBULIN RATIO 0.5 (1.1-1.5); ALKALINE PHOSPHATASE 161 IU/L (46-116); ANION GAP 7 (8-16); ASPARTATE AMINO TRANSFERASE 19 U/L (10-37); BILIRUBIN,TOTAL 0.2 MG/DL (0.1-1.0); BLOOD UREA NITROGEN 20 MG/DL (7-18); BUN/CREATININE RATIO 29.9 (5.4-32.0); CALCIUM 8.8 MG/DL (8.5-10.1); CHLORIDE 101 MMOL/L (99-107); CREATININE 0.67 MG/DL (0.60-1.10); GLUCOSE 76 MG/DL (70-104); SODIUM 138 MMOL/L (135-145); TOTAL CARBON DIOXIDE 29.7 MMOL/L (24-32); TOTAL PROTEIN 8.9 G/DL (6.4-8.2); eGFR > 90 ML/MIN
[2019-06-02] MEDS: JUVEN Smoothie Arginine/Glut./Ca2+Bmb (Juven 19.3pkt) 240ml cup PO SCH ×2 (07:30→12:30)
[2019-06-02] MEDS: enoxaparin 40mg/0.4ml syringe SUBCUT SCH (09:01)
[2019-06-02] MEDS: lactobacillus rhamnosus 10,000 MMU CELLS/CAPSULE PO SCH ×2 (09:01→20:00)
[2019-06-02] MEDS: HYDROcodone/acetaminophen 10/325mg tab PO PRN (10:28)
[2019-06-02 11:00] VITALS: BP 102/59
--- NOTE | 2019-06-02 13:23 | NUR ---
PAGER ID: [phone] MESSAGE: RE: Vince Turner, Room: 3010. Can we give Pt one time does of IV morphine for wound vac placement? Pt requesting. -[facility] #[id number] -Dr. Vaca paged concerning Pt pain medications for wound vac placement.
[2019-06-02] MEDS ORDERED: morphine 4 MG/ML inj SYRINge IV ONE (13:25)
[2019-06-02 15:00] VITALS: BP 108/52
[2019-06-02 15:16] LABS: CLARITY,URINE CLEAR (Clear); COLOR,URINE YELLOW (Yellow); GLUCOSE, URINE NEGATIVE (Neg); KETONES,URINE NEGATIVE (Neg); LEUKOCYTE ESTERASE ,URINE NEGATIVE (Neg); NITRITES, URINE NEGATIVE (Neg); OCCULT BLOOD,URINE NEGATIVE (Neg); PH,URINE 5.5 (4.8-8.0); PROTEIN,URINE NEGATIVE (Neg); UROBILINOGEN,URINE 0.2 E.U/dL (0.2-1.0)
[2019-06-02 15:20] LABS: UA COLLECTION TYPE FOLEY CATH
--- NOTE | 2019-06-02 15:34 | NUR ---
WOUND VAC EDUCATION PROVIDED BY WOUND CARE 1. Patient instructed to call the Wound Center or their Home Health Agency immediately if: * They notice a change in the color or amount of the fluid in the canister. * Their wound looks more red than usual or has a foul smell. * The skin around their wound looks reddened or irritated. * The dressing feels loose or appears to be loose. * They experience any increase or changes in their pain. * The alarm will not turn off. 2. Patient instructed that they should not be disconnected from suction for more than 2 hours at a time. * If they are not able to get the suction back on, they need to remove the dressing and take all of the foam out of the wound. * Then moisten sterile gauze with normal saline and place on/in the wound. * Change the dressing once a day until arrangements have been made to replace the wound vac dressing. 3. Patient instructed to turn the wound vac machine OFF and call 911 or go to the ED immediately if their canister fills rapidly with blood. 4. If any of these occur while in the hospital tell a nurse immediately. Addendum: 06/02/19 at 1534 by Mikey Begum RN Amended: Links added.
[2019-06-02 18:00] VITALS: BP 113/53
--- NOTE | 2019-06-02 18:35 | NUR ---
Problems reprioritized. Patient report given, questions answered & plan of care reviewed with Destinee RUSH.
--- NOTE | 2019-06-02 18:56 | NUR ---
Patient in room PCU 3010. I have received report from Matthew Gracia and had the opportunity to ask questions and assume patient care. Addendum: 06/02/19 at 1857 by Destinee Roblero RN Amended: Links added.
--- NOTE | 2019-06-02 19:49 | NUR ---
Problems reprioritized. Patient report given, questions answered & plan of care reviewed with Giacomo Lovelace Rn. Addendum: 06/02/19 at 1950 by Destinee Roblero RN Amended: Links added.
--- NOTE | 2019-06-02 20:25 | NUR ---
pt meds completed being given to pt and all questions answered for pt after meds done. aware he is being transfered in the bed to [facility] and Giacomo on surgical will be his new Rn. report given earlier.
--- NOTE | 2019-06-02 20:35 | NUR ---
now on surgical with belongings to 351 surgical room.
[2019-06-02 20:40] VITALS: BP 112/68
--- NOTE | 2019-06-02 20:40 | NUR ---
pt arrived to unit. oriented to unit. call rucker within reach. 2 rn skin check done. vitals 97.8F 89HR 16RR 100%RA 112/68BP Will continue to monitor
[2019-06-03] VITALS: BP 114/58
[2019-06-03] MEDS: Melatonin 3mg tablet PO PRN
[2019-06-03] MEDS: HYDROmorphone 1 mg/ml syringe IV SCH ×9 (01:21→17:00)
[2019-06-03] MEDS: ondansetron/PF 4mg/2ml inj IV PRN (01:53)
[2019-06-03] MEDS: vancomycin/NS 1 GM ADD-VANTAGE 250 ML IV SCH ×3 (03:16→20:45)
[2019-06-03] MEDS: diphenhydrAMINE 50 mg/ml inj IV PRN ×3 (03:40→20:46)
--- NOTE | 2019-06-03 06:38 | NUR ---
Problems reprioritized. Patient report given, questions answered & plan of care reviewed with ADRI Alcantara.
--- NOTE | 2019-06-03 06:54 | NUR ---
Patient in room [facility] 351. I have received report from Giacomo RUSH and had the opportunity to ask questions and assume patient care.
[2019-06-03 07:23] VITALS: BP 99/64
[2019-06-03] MEDS: JUVEN Smoothie Arginine/Glut./Ca2+Bmb (Juven 19.3pkt) 240ml cup PO SCH ×2 (07:30→13:14)
[2019-06-03] MEDS: lactobacillus rhamnosus 10,000 MMU CELLS/CAPSULE PO SCH ×2 (07:42→20:46)
[2019-06-03] MEDS: enoxaparin 40mg/0.4ml syringe SUBCUT SCH ×2 (07:43→07:53)
[2019-06-03] MEDS: CefTRIAXone/D5W-Rocephin 1gm 50 ML IV SCH (08:05)
[2019-06-03] MEDS: HYDROcodone/acetaminophen 10/325mg tab PO PRN (09:51)
[2019-06-03 11:00] VITALS: BP 134/68
[2019-06-03] MEDS: cyclobenzaprine 10mg tablet PO PRN (11:52)
[2019-06-03] MEDS ORDERED: CADD PCA waste documentation MC PRN (12:55)
[2019-06-03] MEDS ORDERED: normal saline 1000ml 1,000 ML IV SCH (12:55)
[2019-06-03] MEDS ORDERED: naloxone 0.4 mg/ml inj IV PRN (12:55)
[2019-06-03] MEDS: oxybutynin 5mg tablet PO SCH ×2 (13:33→20:46)
[2019-06-03] MEDS: HYDROmorphone/NS 1 mg/ml CADD 50 ML IV SCH ×6 (14:09→23:00)
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
--- NOTE | 2019-06-03 18:10 | NUR ---
Patient in room [facility] 351. I have received report from ADRI Alcantara and had the opportunity to ask questions and assume patient care.
--- NOTE | 2019-06-03 18:10 | NUR ---
Patient in room [facility] 351. I have received report from ADRI SCHUMACHER and had the opportunity to ask questions and assume patient care.
--- NOTE | 2019-06-03 18:30 | NUR ---
Problems reprioritized. Patient report given, questions answered & plan of care reviewed with Giacomo RUSH.
--- NOTE | 2019-06-03 18:46 | NUR ---
patient had CADD pump in bed. educated on how to use and settings prescribed per MD order. pump replaced on on IV pole
[2019-06-03 20:00] VITALS: BP 111/59
--- NOTE | 2019-06-03 20:40 | NUR ---
reeducated patient on CADD pump use when he displayed it to me in his hands. explained settings and how dosing works per MD order. patient expressed dismay about pain management and how he believes it isn't working and that a norco would help. Told patient that he cannot continue to manipulate the CADD pump, if he needs pain medication to press the button control for medication administration and that continued manipulation will lead to removal of the CADD and a different treatment path for pain..
--- NOTE | 2019-06-03 23:10 | NUR ---
Alerted by ADRI Saleh that patient manipulated CADD pump and was found with it. When I entered room I asked patient why he was manipulating the pump, which he stated, "because the IV pump was beeping so I just turned it off." Told patient to not manipulate IV pump and CADD pump and that if either does beep to alert staff so that an RN can adjust the pump.
[2019-06-04] VITALS: BP 115/71
[2019-06-04] MEDS: HYDROmorphone 1 mg/ml syringe IV SCH ×12 (01:15→22:59)
[2019-06-04] MEDS: cyclobenzaprine 10mg tablet PO PRN ×3 (03:10→23:30)
[2019-06-04] MEDS: Melatonin 3mg tablet PO PRN (03:10)
[2019-06-04] MEDS: diphenhydrAMINE 50 mg/ml inj IV PRN ×2 (04:28→11:43)
[2019-06-04] MEDS: vancomycin/NS 1 GM ADD-VANTAGE 250 ML IV SCH ×3 (04:28→19:20)
--- NOTE | 2019-06-04 06:43 | NUR ---
Problems reprioritized. Patient report given, questions answered & plan of care reviewed with ADRI Musa.
[2019-06-04 07:00] VITALS: BP 117/70
[2019-06-04] MEDS: oxybutynin 5mg tablet PO SCH ×3 (08:03→21:28)
[2019-06-04] MEDS: lactobacillus rhamnosus 10,000 MMU CELLS/CAPSULE PO SCH ×2 (08:03→19:20)
[2019-06-04] MEDS: JUVEN Smoothie Arginine/Glut./Ca2+Bmb (Juven 19.3pkt) 240ml cup PO SCH ×2 (08:03→12:32)
[2019-06-04] MEDS: CefTRIAXone/D5W-Rocephin 1gm 50 ML IV SCH (08:03)
[2019-06-04] MEDS: docusate sod 100mg capsule PO PRN ×2 (08:03→21:28)
[2019-06-04] MEDS: enoxaparin 40mg/0.4ml syringe SUBCUT SCH (08:04)
[2019-06-04 11:00] VITALS: BP 105/55
--- NOTE | 2019-06-04 12:24 | NUR ---
Pt. has had no behaviors today. Understands not to touch IV pump- was educated by several nurses and MD. Cooperative and pleasant on my shift so far.
--- NOTE | 2019-06-04 14:28 | NUR ---
PAGER ID: [phone] MESSAGE: [phone] Vince Turner [employer] recommends daily multivitamin for wound healing. May I have this order please ? babita [id number]
--- NOTE | 2019-06-04 18:30 | NUR ---
Patient in room [facility] 351. I have received report from Dimple RUSH and had the opportunity to ask questions and assume patient care.
--- NOTE | 2019-06-04 18:39 | NUR ---
Report given to Kimberley RUSH.
[2019-06-04 19:00] VITALS: BP 109/53
[2019-06-04] MEDS: LORazepam 1 MG tablet PO PRN (22:57)
[2019-06-05] VITALS: BP 91/49
[2019-06-05] MEDS: HYDROmorphone 1 mg/ml syringe IV SCH ×11 (01:21→21:04)
--- NOTE | 2019-06-05 03:05 | NUR ---
Patient can move his upper half using the trapeze bar and also has some feeling to lower extremeties and uses his hands to help move them. Addendum: 06/05/19 at 0310 by Kimberley Grijalva RN Amended: Links added.
[2019-06-05] MEDS: vancomycin/NS 1 GM ADD-VANTAGE 250 ML IV SCH ×3 (03:18→19:31)
[2019-06-05] MEDS: diphenhydrAMINE 50 mg/ml inj IV PRN ×3 (03:30→19:31)
[2019-06-05 06:11] LABS: ALBUMIN 2.5 G/DL (3.4-5.0); ANION GAP 4 (8-16); BLOOD UREA NITROGEN 18 MG/DL (7-18); BUN/CREATININE RATIO 33.3 (5.4-32.0); CALCIUM 8.4 MG/DL (8.5-10.1); CHLORIDE 104 MMOL/L (99-107); CREATININE 0.54 MG/DL (0.60-1.10); GLUCOSE 92 MG/DL (70-104); POTASSIUM 4.3 MMOL/L (3.5-5.1); SODIUM 139 MMOL/L (135-145); TOTAL CARBON DIOXIDE 30.8 MMOL/L (24-32); eGFR > 90 ML/MIN
--- NOTE | 2019-06-05 06:30 | NUR ---
Problems reprioritized. Patient report given, questions answered & plan of care reviewed with Angeli RUSH. Reported that the last dose of dilaudid given was actulay at 0600, not 0500 as shown on the e-mar.
--- NOTE | 2019-06-05 06:48 | NUR ---
Patient in room [facility] 351. I have received report from Kimberley RUSH and had the opportunity to ask questions and assume patient care.
[2019-06-05 07:00] VITALS: BP 109/71
[2019-06-05] MEDS: LORazepam 1 MG tablet PO PRN (07:39)
[2019-06-05] MEDS: cyclobenzaprine 10mg tablet PO PRN ×2 (07:39→22:11)
[2019-06-05] MEDS: CefTRIAXone/D5W-Rocephin 1gm 50 ML IV SCH (07:39)
[2019-06-05] MEDS: oxybutynin 5mg tablet PO SCH ×3 (07:39→21:04)
[2019-06-05] MEDS: lactobacillus rhamnosus 10,000 MMU CELLS/CAPSULE PO SCH ×2 (07:39→19:32)
[2019-06-05] MEDS: enoxaparin 40mg/0.4ml syringe SUBCUT SCH (07:40)
[2019-06-05] MEDS: JUVEN Smoothie Arginine/Glut./Ca2+Bmb (Juven 19.3pkt) 240ml cup PO SCH ×2 (07:40→12:59)
[2019-06-05 11:53] VITALS: BP 116/69
--- NOTE | 2019-06-05 12:13 | NUR ---
PRESSURE ULCER EDUCATION: DEFINITION: A pressure ulcer is an area of skin that breaks down when you stay in one position too long. The constant pressure against the skin reduces the blood flow to that area and the affected tissue dies. CAUSES: "Being bedridden or in a wheelchair "Fragile skin "Having a chronic condition, such as diabetes or vascular disease "Inability to move certain parts of your body without assistance "Older age "Incontinence of urine or stool SYMPTOMS: "A reddened area that DOES NOT turn white when pressed on - this can be the beginning of a pressure ulcer "A blister, deep sore or a crater - these can be advanced pressure ulcers FIRST AID: "Relieve the pressure on this area "Keep the area clean and dry "Call your primary doctor if you see any of the above symptoms "DO NOT massage the area "DO NOT use a donut shaped or ring shaped pillow- these actually interfere with the blood flow and cause complications PREVENTION: "Check for pressure ulcers everyday "Change position at least every two hours to relieve pressure "Use items that help relieve pressure- pillows, sheepskin, foam padding, and powders. "Keep skin clean and dry "Eat healthy well balanced meals "Exercise daily IF YOU SEE ANY OF THESE SYMPTOMS WHILE IN THE HOSPITAL - TELL YOUR NURSE IMMEDIATELY. IF YOU SEE ANY OF THESE SYMPTOMS WHILE AT HOME OR HAVE ANY QUESTIONS OR CONCERNS ABOUT PRESSURE ULCERS - CALL YOUR PRIMARY DOCTOR IMMEDIATELY. WOUND INFECTION EDUCATION PROVIDED BY WOUND CARE 1. Patient instructed to call their primary doctor, or go the ED immediately if any of the following symptoms occur: * Increased pain in wound * Increase in drainage from the wound * Redness in the skin surrounding the wound * Warmth in the skin surrounding the wound * Bleeding from the wound * Temperature of 101 or greater 2. If any of these occur while in the hospital tell a nurse immediately. Addendum: 06/05/19 at 1213 by Citlalli Marsh RN Amended: Links added.
--- NOTE | 2019-06-05 13:19 | NUR ---
Patient continues to be very demanding requesting alot of food and regular pain meds q2hrs . Dr Vaca aware. Patient also challenging and questioning every med given to him. Much time spent with patient explaining meds and ABX. Seen by Wound Team all wounds changed . Patient continues with wound vac at standard settings.
--- NOTE | 2019-06-05 17:56 | NUR ---
patient informed staff that he was constipated but refused to have anything other than prune juice. Despite staffs encouragement.
[2019-06-05 18:00] VITALS: BP 109/65
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
--- NOTE | 2019-06-05 18:38 | NUR ---
Problems reprioritized. Patient report given, questions answered & plan of care reviewed with Ilsa RUSH.
[2019-06-05] MEDS: HYDROmorphone inj. 0.5 MG/0.5 ML DISP.SYRIN IV SCH (23:11)
[2019-06-05] MEDS: ondansetron/PF 4mg/2ml inj IV PRN (23:51)
[2019-06-06] VITALS: BP 122/71
[2019-06-06] MEDS: docusate sod 100mg capsule PO PRN (01:27)
[2019-06-06] MEDS: HYDROmorphone inj. 0.5 MG/0.5 ML DISP.SYRIN IV SCH ×11 (01:28→21:17)
[2019-06-06] MEDS: diphenhydrAMINE 50 mg/ml inj IV PRN ×3 (04:40→17:04)
[2019-06-06] MEDS: vancomycin/NS 1 GM ADD-VANTAGE 250 ML IV SCH ×3 (04:41→19:11)
--- NOTE | 2019-06-06 05:08 | NUR ---
Patient requested blood pressure to be taken, Benadryl 25 mg given at 0440 and the patient's BP was 101/55. Patient's BP now is 96/50. Patient requested bolus. Explained that this BP is expected after having benadryl after BP was 101/55 prior. Patient then states that he is still itchy and the RN only provided him 25 mg of Benadryl and he usually gets 50 mg. Explained that BP was not adequate for 50 mg. Explained that we will reassess BP prior to dilaudid. Will continue to monitor.
--- NOTE | 2019-06-06 05:18 | NUR ---
Discussed with Dr. Vaca that the patient's blood pressure has increasingly be dropping throughout shift, the patient has Dilaudid scheduled Q2 hours and often requests benadryl and flexeril at the same time. Stated that dilaudid is due now and BP is 96/50. Requested if can hold next dose. Dr. Vaca states he is tolerating it fine, give it. Will continue to monitor.
--- NOTE | 2019-06-06 06:00 | NUR ---
Security called prior to each procedure and medication due to reports of inappropriate comments. Patient additionally whispered during patient care if security present. Notified day RN of security request.
--- NOTE | 2019-06-06 06:15 | NUR ---
Problems reprioritized. Patient report given, questions answered & plan of care reviewed with Chitra RUSH.
--- NOTE | 2019-06-06 06:17 | NUR ---
Patient in room [facility]. I have received report from Ilsa RUSH and had the opportunity to ask questions and assume patient care.
[2019-06-06 07:29] VITALS: BP 90/57
[2019-06-06] MEDS: JUVEN Smoothie Arginine/Glut./Ca2+Bmb (Juven 19.3pkt) 240ml cup PO SCH ×2 (07:30→12:33)
[2019-06-06] MEDS: enoxaparin 40mg/0.4ml syringe SUBCUT SCH (08:00)
[2019-06-06] MEDS: cyclobenzaprine 10mg tablet PO PRN (08:42)
[2019-06-06] MEDS: lactobacillus rhamnosus 10,000 MMU CELLS/CAPSULE PO SCH ×2 (08:43→19:10)
[2019-06-06] MEDS: CefTRIAXone/D5W-Rocephin 1gm 50 ML IV SCH (08:43)
[2019-06-06] MEDS: oxybutynin 5mg tablet PO SCH ×3 (08:43→21:16)
--- NOTE | 2019-06-06 09:47 | NUR ---
Chronic FC on admit. Addendum: 06/06/19 at 0959 by Chitra Valdovions RN Amended: Links added.
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
[2019-06-06 11:45] VITALS: BP 109/58
[2019-06-06] MEDS ORDERED: magnesium hydroxide 30ml (MOM) UD suspension PO ONE (12:35)
[2019-06-06] MEDS ORDERED: magnesium hydroxide 30ml (MOM) UD suspension PO PRN (13:00)
--- NOTE | 2019-06-06 14:19 | NUR ---
Attempted to complete wound care and photos, patient states that he is very tired right now and wants to wait until later, will follow up with patient after he naps .
--- NOTE | 2019-06-06 16:17 | NUR ---
I gave this pt. a dose of pain meds and talked to him about wound care. He stated he did not want me to do anything. He stated all he wanted was his wound vac changed and other than than he did not want me to touch his wounds.
--- NOTE | 2019-06-06 18:18 | NUR ---
Received report from ADRI Buenrostro. Patient is awake and alert on room air, in no apparent distress. Call light and items of frequent use within reach. Will continue to monitor.
--- NOTE | 2019-06-06 18:49 | NUR ---
Patient turned self tolerates well, wound care completed, photos taken. Report given to NOC nurse.
[2019-06-06] MEDS ORDERED: VANCOMYCIN LEVEL IV ONE (19:30)
--- NOTE | 2019-06-06 19:45 | NUR ---
Report called to ADRI Garcia at [facility]. Problems reprioritized. Patient report given, questions answered & plan of care reviewed.
[2019-06-06 20:00] VITALS: BP 110/63
[2019-06-06] MEDS: ondansetron/PF 4mg/2ml inj IV PRN (21:23)
--- NOTE | 2019-06-06 22:50 | NUR ---
Report given to relay shop tester personnel. Patient transferred out with all belongings, Peripheral IV left in patient, all education provided and patient verbalized understanding. Vital signs stable. Two ambulance personnel escorted patient out of unit on [facility].
--- NOTE | 2019-06-08 06:52 | NUR ---
Patient in room [facility] 351. I have received report from Gilberto RUSH and had the opportunity to ask questions and assume patient care.
== END 2019-06-06 22:15 | DRG 592 ==
LOC: ER 22:31 → PCU 3S 05-30 02:25 → SUR 3N 06-02 20:28
PROVIDERS: ADMIT Family Medicine; ATTEND Internal Medicine
PROC: 3E0234Z Introduction of Serum, Toxoid and Vaccine into Muscle, Percutaneous Approach (ICD-10-PCS; principal; 2019-05-31)
DX: L89.154 Pressure ulcer of sacral region, stage 4 (principal); E43 Unspecified severe protein-calorie malnutrition; G82.20 Paraplegia, unspecified; Z68.1 Body mass index [BMI] 19.9 or less, adult; L89.623 Pressure ulcer of left heel, stage 3; B96.1 Klebsiella pneumoniae [K. pneumoniae] as the cause of diseases classified elsewhere; B95.61 Methicillin susceptible Staphylococcus aureus infection as the cause of diseases classified elsewhere; B96.4 Proteus (mirabilis) (morganii) as the cause of diseases classified elsewhere; L89.893 Pressure ulcer of other site, stage 3; D63.8 Anemia in other chronic diseases classified elsewhere; Z93.3 Colostomy status; Z23 Encounter for immunization; Z88.0 Allergy status to penicillin; Z87.440 Personal history of urinary (tract) infections
CPT/HCPCS: 36415; 73502; 73560; 80048; 80053; 80202; 81003; 83605; 84145; 85025; 85610; 85651; 87040; 87070; 87077; 87081; 87186; 90732; 96361; 96374; 96375; 97110; 97162; 97530; 99285; G0378; J0696; J1170; J1200; J1650; J2060; J2270; J2405; J3370; J3490; J7030; J7050

== ENCOUNTER 2019-08-27 11:01 | Inpatient (IN) | payer MEDICARE, MEDICAID ==
[~2019-08-27] VITALS: Ht 188 cm; Wt 58.0 kg
[~2019-08-27 11:01] MED LIST changes: -BACL10TA PO; -DIAZ10TA PO; -FENT1PAT7 TOP; -LINE600T14 PO; +NO HOME MEDS
--- NOTE | 2019-08-27 12:20 | NUR ---
IV ATTEMPTED 3 TIMES, TWICE OF THAT WITH ULTRASOUND, UNABLE TO OBTAIN IV ACCESS, LABS HEMOLYZED FROM BLOOD OBTAINED FROM FIRST IV ATTEMPT, GIDEON CHARGE NURSE CALLED TO BEDSIDE TO PLACE IV VIA ULTRASOUND NOW.
[2019-08-27 12:58] LABS: BASOPHILS % (AUTO) 0.4 % (0-1); EOSINOPHILS # (AUTO) 0.1 X10'3 (0-0.9); EOSINOPHILS % (AUTO) 0.9 % (0-6); HEMATOCRIT 33.3 % (42.0-52.0); HEMOGLOBIN 10.9 g/dl (14.0-17.9); LYMPHOCYTES # (AUTO) 1.5 X10'3 (1.1-4.8); LYMPHOCYTES % (AUTO) 13.1 % (21-51); MEAN CORPUSCULAR HEMOGLOBIN 24.6 PG (27.0-31.0); MEAN CORPUSCULAR HGB CONC 32.6 g/dL (33.0-36.5); MEAN CORPUSCULAR VOLUME 75.2 FL (78-98); MEAN PLATELET VOLUME 7.1 FL (7.4-10.4); MONOCYTES # (AUTO) 1.2 X10'3 (0-0.9); MONOCYTES % (AUTO) 10.4 % (2-12); NEUTROPHILS # (AUTO) 8.7 X10'3 (1.8-7.7); NEUTROPHILS % (AUTO) 75.2 % (42-75); PLATELET COUNT 441 X10'3 (140-440); RED BLOOD COUNT 4.43 X10'6 (4.70-6.10); RED CELL DISTRIBUTION WIDTH 18.7 % (11.5-14.5); WHITE BLOOD COUNT 11.5 X10'3 (4.5-11.0)
--- NOTE | 2019-08-27 12:59 | NUR ---
OBSTETRICS GYN GIDEON PLACED 22 GAUGE PIV TO LEFT UPPER CHEST ON SECOND ATTEMPT. I ATTEMPTED TWO PIVS: BOTH WERE BEING PLACED WHEN THE PATIENT STATED "I DONT WANT IT THERE". HE YANKED HIS ARM AWAY BOTH TIMES. I HAD DISCUSSED PLACEMENT WITH THE PATIENT PRIOR TO ATTEMPTING PIV PLACEMENT
[2019-08-27 13:17] LABS: ALANINE AMINOTRANSFERASE 20 U/L (12-78); ALBUMIN 2.8 G/DL (3.4-5.0); ALBUMIN/GLOBULIN RATIO 0.6 (1.1-1.5); ALKALINE PHOSPHATASE 143 IU/L (46-116); ANION GAP 9 (8-16); ASPARTATE AMINO TRANSFERASE 18 U/L (10-37); BILIRUBIN,TOTAL 0.2 MG/DL (0.1-1.0); BLOOD UREA NITROGEN 27 MG/DL (7-18); CALCIUM 8.2 MG/DL (8.5-10.1); CHLORIDE 100 MMOL/L (99-107); CREATININE 0.54 MG/DL (0.60-1.10); GLUCOSE 132 MG/DL (70-104); POTASSIUM 3.7 MMOL/L (3.5-5.1); SODIUM 138 MMOL/L (135-145); TOTAL CARBON DIOXIDE 28.7 MMOL/L (24-32); TOTAL PROTEIN 7.8 G/DL (6.4-8.2); eGFR > 90 ML/MIN
[2019-08-27] MEDS ORDERED: normal saline 1000ML IV soln IV ONE (13:30)
[2019-08-27 13:45] LABS: PLATELET ESTIMATE INCREASED
[2019-08-27 13:46] LABS: HYPOCHROMASIA 1+; POLYCHROMASIA FEW
[2019-08-27 13:52] LABS: PARTIAL THROMBOPLASTIN TIME 32 SECONDS (22-32)
[2019-08-27] MEDS ORDERED: vancomycin/NS 1 GM ADD-VANTAGE 250 ML IV ONE (13:55)
[2019-08-27] MEDS ORDERED: morphine 4 MG/ML inj SYRINge IV ONE (14:25)
[2019-08-27] MEDS ORDERED: ondansetron/PF 4mg/2ml inj IV ONE (14:25)
--- NOTE | 2019-08-27 14:53 | NUR ---
F/C PLACED PT TOLLERATED WELL URINE COLLECETED YELLOW AND CLOUDY
--- NOTE | 2019-08-27 15:05 | NUR ---
PT CLEANED UP NEW BEDDING PLACED AND REPOSTIEND ON TO HIS R SIDE
[2019-08-27] MEDS ORDERED: HYDR-4353 PO (15:06)
[2019-08-27] MEDS ORDERED: DOXY100C43 PO (15:06)
[2019-08-27 15:11] LABS: CLARITY,URINE CLOUDY (Clear); COLOR,URINE YELLOW (Yellow); GLUCOSE, URINE NEGATIVE (Neg); KETONES,URINE 15 mg/dl (Neg); LEUKOCYTE ESTERASE ,URINE LARGE (Neg); NITRITES, URINE NEGATIVE (Neg); OCCULT BLOOD,URINE SMALL (Neg); PH,URINE 7.5 (4.8-8.0); PROTEIN,URINE TRACE mg/dl (Neg); UROBILINOGEN,URINE 0.2 E.U/dL (0.2-1.0)
[2019-08-27 15:17] LABS: UA COLLECTION TYPE FOLEY CATH
[2019-08-27 15:18] LABS: BACTERIA,URINE 3+ /HPF (Neg); RBC,URINE 0-2 /HPF (0-2); SQUAMOUS EPITHELIAL CELL,UR FEW /LPF (FEW); WBC,URINE TNTC /HPF (0-4)
[2019-08-27 15:22] LABS: URINE AMPHETAMINE SCREEN NEGATIVE (Neg); URINE BARBITUATE SCREEN NEGATIVE (Neg); URINE BENZODIAZEPINES SCREEN POSITIVE (Neg); URINE CANNABINOID SCREEN POSITIVE (Neg); URINE COCAINE SCREEN NEGATIVE (Neg); URINE METHADONE SCREEN NEGATIVE (Neg); URINE OPIATE SCREEN POSITIVE (Neg); URINE PHENCYCLIDINE SCREEN NEGATIVE (Neg)
--- NOTE | 2019-08-27 15:58 | NUR ---
CALLED ZACHARY WITH CM AND SHE IS LOOKING TO SEE IF PT CAN MEET ADMISSION CRITERIA AND THEN SHE WILL HAVE CAN CAPPER SEE PT TOMORROW, JAZIEL SALAS SPOKE WITH HOSPITALIST AGAIN AND PT IS TO BE ADMITTED
[2019-08-27] MEDS ORDERED: bisacodyl 10mg suppository rectal RC PRN (16:00)
[2019-08-27] MEDS ORDERED: metoclopramide 5 mg/ml inj IV PRN (16:00)
[2019-08-27] MEDS ORDERED: ondansetron/PF 4mg/2ml inj IV PRN (16:00)
[2019-08-27] MEDS: K and/or MAG REPLACEMENT MC SCH (16:00)
[2019-08-27] MEDS ORDERED: acetaminophen 650mg rectal suppository RC PRN (16:00)
[2019-08-27] MEDS ORDERED: mag hydrox/Alum hydrox/simeth 30ml oral suspension PO PRN (16:00)
[2019-08-27] MEDS ORDERED: acetaminophen 325mg tablet PO PRN ×2 (16:00)
[2019-08-27] MEDS ORDERED: magnesium 4gm in 100ml NS 100 ML IV PRN (16:00)
[2019-08-27] MEDS ORDERED: morphine 2 MG/ML inj. syringe IV PRN ×2 (16:00)
[2019-08-27] MEDS ORDERED: magnesium 2GM in 50ml NS 50 ML IV PRN (16:00)
[2019-08-27] MEDS ORDERED: potassium Cl 20 mEq SR tablet PO PRN (16:00)
[2019-08-27] MEDS ORDERED: potassium CL 10mEq/100ml bag 100 ML IV PRN ×2 (16:00)
[2019-08-27] MEDS ORDERED: magnesium Cl slow-release 64mg tablet PO PRN (16:00)
[2019-08-27] MEDS ORDERED: magnesium hydroxide 30ml (MOM) UD suspension PO PRN (16:00)
[2019-08-27] MEDS: cefepime 1GM in D5W 50mL 50 ML IV SCH (16:38)
[2019-08-27] MEDS: normal saline 1000ml 1,000 ML IV SCH (16:38)
--- NOTE | 2019-08-27 17:38 | NUR ---
Received report from ADRI Nielsen in ED and patient now arrived to the floor. vital signs being taken. pt comfortable at this time-will continue to monitor.
[2019-08-27 17:45] VITALS: BP 94/52
--- NOTE | 2019-08-27 18:30 | NUR ---
Patient refused to allow aid to take VS as his tray had only just arrived from ER and he was currently eating.
--- NOTE | 2019-08-27 18:30 | NUR ---
Patient in room [facility]. I have received report from Sagrario RUSH and had the opportunity to ask questions and assume patient care.
--- NOTE | 2019-08-27 18:45 | NUR ---
Problems reprioritized. Patient report given, questions answered & plan of care reviewed with ADRI Chu.
[2019-08-27] MEDS: heparin, porcine 5000 units/ml vial SQ SCH (20:33)
[2019-08-27] MEDS: HYDROcodone/acetaminophen 5mg/325mg tablet PO PRN (20:35)
[2019-08-27] MEDS ORDERED: temazepam 15mg capsule PO PRN (21:00)
[2019-08-27] MEDS: VANCOMYCIN 750MG IV in NS 250 ML IV SCH (22:57)
[2019-08-27] MEDS: diphenhydrAMINE 25mg capsule PO PRN (23:03)
[2019-08-27 23:30] VITALS: BP 101/62
[2019-08-28] MEDS: cefepime 1GM in D5W 50mL 50 ML IV SCH ×3 (00:59→17:46)
[2019-08-28] MEDS: normal saline 1000ml 1,000 ML IV SCH ×3 (01:37→22:45)
--- NOTE | 2019-08-28 06:31 | NUR ---
Patient in room [facility] 355. I have received report from Kimberley RUSH and had the opportunity to ask questions and assume patient care.
--- NOTE | 2019-08-28 07:03 | NUR ---
Reported off to Chiara RUSH
[2019-08-28] MEDS: VANCOMYCIN 750MG IV in NS 250 ML IV SCH ×3 (07:34→22:45)
[2019-08-28] MEDS: diphenhydrAMINE 25mg capsule PO PRN ×2 (07:35→16:24)
[2019-08-28] MEDS: heparin, porcine 5000 units/ml vial SQ SCH ×2 (07:35→19:32)
[2019-08-28 08:00] VITALS: BP 98/54
[2019-08-28] MEDS: K and/or MAG REPLACEMENT MC SCH (08:00)
[2019-08-28] MEDS: HYDROcodone/acetaminophen 5mg/325mg tablet PO PRN ×3 (08:42→23:16)
[2019-08-28 09:19] LABS: BASOPHILS % (AUTO) 0.3 % (0-1); EOSINOPHILS # (AUTO) 0.2 X10'3 (0-0.9); EOSINOPHILS % (AUTO) 2.4 % (0-6); HEMATOCRIT 26.8 % (42.0-52.0); HEMOGLOBIN 9.1 g/dl (14.0-17.9); LYMPHOCYTES # (AUTO) 1.3 X10'3 (1.1-4.8); LYMPHOCYTES % (AUTO) 19.7 % (21-51); MEAN CORPUSCULAR HEMOGLOBIN 25.3 PG (27.0-31.0); MEAN CORPUSCULAR HGB CONC 33.8 g/dL (33.0-36.5); MONOCYTES # (AUTO) 0.8 X10'3 (0-0.9); MONOCYTES % (AUTO) 12.5 % (2-12); NEUTROPHILS # (AUTO) 4.4 X10'3 (1.8-7.7); NEUTROPHILS % (AUTO) 65.1 % (42-75); PLATELET COUNT 319 X10'3 (140-440); RED BLOOD COUNT 3.58 X10'6 (4.70-6.10); RED CELL DISTRIBUTION WIDTH 18.9 % (11.5-14.5); WHITE BLOOD COUNT 6.7 X10'3 (4.5-11.0)
[2019-08-28 09:30] LABS: ALANINE AMINOTRANSFERASE 17 U/L (12-78); ALBUMIN 2.2 G/DL (3.4-5.0); ALBUMIN/GLOBULIN RATIO 0.5 (1.1-1.5); ALKALINE PHOSPHATASE 98 IU/L (46-116); ANION GAP 7 (8-16); ASPARTATE AMINO TRANSFERASE 15 U/L (10-37); BILIRUBIN,TOTAL 0.2 MG/DL (0.1-1.0); BLOOD UREA NITROGEN 8 MG/DL (7-18); BUN/CREATININE RATIO 14.8 (5.4-32.0); CALCIUM 7.7 MG/DL (8.5-10.1); CHLORIDE 107 MMOL/L (99-107); CREATININE 0.54 MG/DL (0.60-1.10); GLUCOSE 99 MG/DL (70-104); MAGNESIUM 1.8 MG/DL (1.5-2.4); PHOSPHORUS 2.9 MG/DL (2.3-4.5); POTASSIUM 3.2 MMOL/L (3.5-5.1); SODIUM 143 MMOL/L (135-145); TOTAL CARBON DIOXIDE 29.2 MMOL/L (24-32); TOTAL PROTEIN 6.4 G/DL (6.4-8.2); eGFR > 90 ML/MIN
[2019-08-28] MEDS: potassium Cl 20 mEq SR tablet PO PRN ×3 (10:10→19:31)
[2019-08-28 11:01] VITALS: BP 105/52
[2019-08-28 11:13] LABS: PLATELET ESTIMATE NORMAL
[2019-08-28 11:14] LABS: ANISOCYTOSIS 2+; MICROCYTOSIS 1+
[2019-08-28 11:15] LABS: HYPOCHROMASIA 1+; POLYCHROMASIA FEW
[2019-08-28 12:00] VITALS: BP 105/52
[2019-08-28] MEDS: metroNIDAZOLE-Flagyl 500mg/NS 100 ML IV SCH ×2 (12:29→19:35)
[2019-08-28 19:10] VITALS: BP 127/65
[2019-08-28] MEDS: lactobacillus rhamnosus 10,000 MMU CELLS/CAPSULE PO SCH (19:32)
[2019-08-28] MEDS: diazepam 5mg tablet PO PRN (19:32)
[2019-08-28] MEDS: NYSTATIN CREAM - 30GM TUBE TP SCH (19:49)
--- NOTE | 2019-08-28 19:57 | NUR ---
Problems reprioritized. Patient report given, questions answered & plan of care reviewed with Alex RUSH.
[2019-08-28] MEDS: diphenhydrAMINE 50 mg/ml inj IV PRN (22:45)
[2019-08-29] VITALS: BP 118/66
[2019-08-29] MEDS: cefepime 1GM in D5W 50mL 50 ML IV SCH ×3 (00:30→16:00)
[2019-08-29 05:40] LABS: BASOPHILS % (AUTO) 0.5 % (0-1); EOSINOPHILS # (AUTO) 0.2 X10'3 (0-0.9); EOSINOPHILS % (AUTO) 2.9 % (0-6); HEMATOCRIT 29.8 % (42.0-52.0); HEMOGLOBIN 9.9 g/dl (14.0-17.9); LYMPHOCYTES # (AUTO) 1.7 X10'3 (1.1-4.8); LYMPHOCYTES % (AUTO) 25.9 % (21-51); MEAN CORPUSCULAR HEMOGLOBIN 25.2 PG (27.0-31.0); MEAN CORPUSCULAR HGB CONC 33.1 g/dL (33.0-36.5); MEAN PLATELET VOLUME 7.2 FL (7.4-10.4); MONOCYTES # (AUTO) 0.9 X10'3 (0-0.9); MONOCYTES % (AUTO) 13.7 % (2-12); NEUTROPHILS # (AUTO) 3.8 X10'3 (1.8-7.7); PLATELET COUNT 361 X10'3 (140-440); RED BLOOD COUNT 3.92 X10'6 (4.70-6.10); RED CELL DISTRIBUTION WIDTH 18.7 % (11.5-14.5); WHITE BLOOD COUNT 6.6 X10'3 (4.5-11.0)
[2019-08-29 05:55] LABS: ALANINE AMINOTRANSFERASE 19 U/L (12-78); ALBUMIN 2.3 G/DL (3.4-5.0); ALBUMIN/GLOBULIN RATIO 0.5 (1.1-1.5); ALKALINE PHOSPHATASE 117 IU/L (46-116); ANION GAP 10 (8-16); ASPARTATE AMINO TRANSFERASE 22 U/L (10-37); BILIRUBIN,TOTAL 0.2 MG/DL (0.1-1.0); BLOOD UREA NITROGEN 7 MG/DL (7-18); BUN/CREATININE RATIO 12.3 (5.4-32.0); CALCIUM 7.9 MG/DL (8.5-10.1); CHLORIDE 108 MMOL/L (99-107); CREATININE 0.57 MG/DL (0.60-1.10); GLUCOSE 87 MG/DL (70-104); MAGNESIUM 1.8 MG/DL (1.5-2.4); PHOSPHORUS 3.6 MG/DL (2.3-4.5); POTASSIUM 4.1 MMOL/L (3.5-5.1); SODIUM 144 MMOL/L (135-145); TOTAL CARBON DIOXIDE 25.6 MMOL/L (24-32); TOTAL PROTEIN 7.1 G/DL (6.4-8.2); eGFR > 90 ML/MIN
--- NOTE | 2019-08-29 06:00 | NUR ---
Problems reprioritized. Patient report given, questions answered & plan of care reviewed with KELLI. Addendum: 08/29/19 at 0656 by Armen Billings RN Amended: Links added.
[2019-08-29 06:59] LABS: PLATELET ESTIMATE NORMAL
[2019-08-29 07:00] LABS: POLYCHROMASIA FEW
[2019-08-29 07:01] LABS: ANISOCYTOSIS 2+; HYPOCHROMASIA 1+; MICROCYTOSIS 1+
[2019-08-29] MEDS: K and/or MAG REPLACEMENT MC SCH (07:20)
[2019-08-29 07:26] VITALS: BP 122/55
[2019-08-29] MEDS: VANCOMYCIN 750MG IV in NS 250 ML IV SCH (07:47)
[2019-08-29] MEDS: diphenhydrAMINE 25mg capsule PO PRN ×2 (07:47→22:56)
[2019-08-29] MEDS: normal saline 1000ml 1,000 ML IV SCH ×3 (07:59→20:39)
[2019-08-29] MEDS: NYSTATIN CREAM - 30GM TUBE TP SCH ×2 (08:00→20:00)
[2019-08-29] MEDS: metroNIDAZOLE-Flagyl 500mg/NS 100 ML IV SCH (08:00)
[2019-08-29] MEDS: heparin, porcine 5000 units/ml vial SQ SCH ×2 (08:00→20:38)
[2019-08-29] MEDS: lactobacillus rhamnosus 10,000 MMU CELLS/CAPSULE PO SCH ×2 (08:00→20:34)
--- NOTE | 2019-08-29 10:45 | NUR ---
Patient refused antibiotics and physical assessment. When I gave Benadryl patient dissolved in coffee and then took it. was argumentative during med pass
[2019-08-29 11:00] VITALS: BP 121/58
[2019-08-29] MEDS: HYDROcodone/acetaminophen 10/325mg tab PO PRN ×2 (12:47→18:10)
[2019-08-29] MEDS ORDERED: diphenhydrAMINE 50 mg/ml inj IV PRN (13:40)
[2019-08-29] MEDS: diazepam 5mg tablet PO PRN ×2 (14:23→20:34)
[2019-08-29] MEDS ORDERED: VANCOMYCIN LEVEL IV ONE (14:30)
[2019-08-29] MEDS: vancomycin/NS 1 GM ADD-VANTAGE 250 ML IV SCH ×2 (15:00→22:56)
--- NOTE | 2019-08-29 18:12 | NUR ---
Patient broke pill in half and sniffed the loose powder, asked patient to swallow pill, patient stated that they " like to let the pills dissolve in mouth before I swallow", asked the patient again to swallow pills,the patient chewed the pill and then swallowed
--- NOTE | 2019-08-29 18:15 | NUR ---
Problems reprioritized. Patient report given, questions answered & plan of care reviewed with ADRI Baker.
--- NOTE | 2019-08-29 18:30 | NUR ---
Patient in room [facility] 355. I have received report from REGINO RUSH and had the opportunity to ask questions and assume patient care.
[2019-08-29] MEDS: diphenhydrAMINE 50 mg/ml inj IV PRN (19:52)
[2019-08-29 20:00] VITALS: BP 128/68
--- NOTE | 2019-08-29 20:03 | NUR ---
DAY SHIFT RN MISSED 1500 DOSE OF VANCO. I WENT TO HANG IT LATE AND GIVE FOLLOWING DOSE JUST A LITTLE LATE TO GET TIME B ACK ON AND PHARMACIST CALLED AND SAID TO SKIP DOSE IT WAS GREATER THAN 4 FOURS PAST WHEN THE DOSE WAS DUE AND TO GIVE DOSE AT NEXT ADMINISTRATION TIME
[2019-08-29] MEDS: metroNIDAZOLE 500mg tablet PO SCH (20:34)
[2019-08-29] MEDS: HYDROcodone/acetaminophen 5mg/325mg tablet PO PRN (22:57)
[2019-08-30] MEDS: cefepime 1GM in D5W 50mL 50 ML IV SCH (00:43)
[2019-08-30 05:48] LABS: BASOPHILS % (AUTO) 0.4 % (0-1); EOSINOPHILS # (AUTO) 0.2 X10'3 (0-0.9); EOSINOPHILS % (AUTO) 2.6 % (0-6); HEMATOCRIT 31.4 % (42.0-52.0); HEMOGLOBIN 10.4 g/dl (14.0-17.9); LYMPHOCYTES # (AUTO) 1.4 X10'3 (1.1-4.8); LYMPHOCYTES % (AUTO) 20.9 % (21-51); MEAN CORPUSCULAR HEMOGLOBIN 24.9 PG (27.0-31.0); MEAN CORPUSCULAR HGB CONC 33.2 g/dL (33.0-36.5); MEAN CORPUSCULAR VOLUME 75.2 FL (78-98); MEAN PLATELET VOLUME 6.7 FL (7.4-10.4); MONOCYTES # (AUTO) 0.8 X10'3 (0-0.9); MONOCYTES % (AUTO) 11.7 % (2-12); NEUTROPHILS # (AUTO) 4.4 X10'3 (1.8-7.7); NEUTROPHILS % (AUTO) 64.4 % (42-75); PLATELET COUNT 416 X10'3 (140-440); RED BLOOD COUNT 4.17 X10'6 (4.70-6.10); RED CELL DISTRIBUTION WIDTH 18.8 % (11.5-14.5); WHITE BLOOD COUNT 6.8 X10'3 (4.5-11.0)
[2019-08-30 06:12] LABS: ALANINE AMINOTRANSFERASE 19 U/L (12-78); ALBUMIN 2.5 G/DL (3.4-5.0); ALBUMIN/GLOBULIN RATIO 0.5 (1.1-1.5); ALKALINE PHOSPHATASE 115 IU/L (46-116); ANION GAP 9 (8-16); ASPARTATE AMINO TRANSFERASE 16 U/L (10-37); BILIRUBIN,TOTAL 0.3 MG/DL (0.1-1.0); BLOOD UREA NITROGEN 6 MG/DL (7-18); BUN/CREATININE RATIO 10.7 (5.4-32.0); CALCIUM 8.3 MG/DL (8.5-10.1); CHLORIDE 106 MMOL/L (99-107); CREATININE 0.56 MG/DL (0.60-1.10); GLUCOSE 103 MG/DL (70-104); MAGNESIUM 1.6 MG/DL (1.5-2.4); PHOSPHORUS 3.8 MG/DL (2.3-4.5); POTASSIUM 3.8 MMOL/L (3.5-5.1); SODIUM 144 MMOL/L (135-145); TOTAL CARBON DIOXIDE 28.6 MMOL/L (24-32); TOTAL PROTEIN 7.5 G/DL (6.4-8.2); eGFR > 90 ML/MIN
--- NOTE | 2019-08-30 06:30 | NUR ---
Problems reprioritized. Patient report given, questions answered & plan of care reviewed with ENDY RN.
[2019-08-30 06:49] LABS: ANISOCYTOSIS 2+; MICROCYTOSIS 1+; PLATELET ESTIMATE NORMAL
[2019-08-30 06:50] LABS: POIKILOCYTOSIS FEW
--- NOTE | 2019-08-30 06:52 | NUR ---
Patient in room [facility] 355. I have received report from Olivia RUSH and had the opportunity to ask questions and assume patient care.
--- NOTE | 2019-08-30 07:00 | NUR ---
Patient refused morning vitals and heparin today
[2019-08-30] MEDS: heparin, porcine 5000 units/ml vial SQ SCH ×2 (08:00→21:00)
[2019-08-30] MEDS: K and/or MAG REPLACEMENT MC SCH (08:00)
[2019-08-30] MEDS: metroNIDAZOLE 500mg tablet PO SCH ×2 (10:07→21:00)
[2019-08-30] MEDS: normal saline 1000ml 1,000 ML IV SCH ×2 (10:09→23:59)
[2019-08-30] MEDS: NYSTATIN CREAM - 30GM TUBE TP SCH ×2 (10:10→21:03)
[2019-08-30] MEDS: CefTRIAXone 2gm/D5W 50ml 50 ML IV SCH (10:11)
[2019-08-30] MEDS: lactobacillus rhamnosus 10,000 MMU CELLS/CAPSULE PO SCH ×2 (10:21→20:59)
[2019-08-30] MEDS: vancomycin/NS 1 GM ADD-VANTAGE 250 ML IV SCH ×3 (10:22→23:14)
[2019-08-30] MEDS: diphenhydrAMINE 50 mg/ml inj IV PRN ×3 (10:38→23:56)
[2019-08-30 11:00] VITALS: BP 131/74
[2019-08-30] MEDS ORDERED: VANCOMYCIN LEVEL IV ONE (14:30)
[2019-08-30] MEDS: HYDROcodone/acetaminophen 5mg/325mg tablet PO PRN (17:52)
--- NOTE | 2019-08-30 18:30 | NUR ---
Problems reprioritized. Patient report given, questions answered & plan of care reviewed with Pat RN.
[2019-08-30 19:30] VITALS: BP 126/71
[2019-08-30 23:00] VITALS: BP 122/68
[2019-08-30] MEDS: diphenhydrAMINE 25mg capsule PO PRN (23:47)
[2019-08-31] MEDS: K and/or MAG REPLACEMENT MC SCH (08:00)
[2019-08-31] MEDS: heparin, porcine 5000 units/ml vial SQ SCH ×2 (08:00→20:00)
[2019-08-31] MEDS: metroNIDAZOLE 500mg tablet PO SCH ×2 (08:00→20:41)
[2019-08-31] MEDS: lactobacillus rhamnosus 10,000 MMU CELLS/CAPSULE PO SCH ×2 (08:00→20:41)
[2019-08-31] MEDS: diphenhydrAMINE 50 mg/ml inj IV PRN ×2 (08:58→17:06)
[2019-08-31] MEDS: NYSTATIN CREAM - 30GM TUBE TP SCH ×2 (09:02→20:00)
[2019-08-31] MEDS: vancomycin/NS 1 GM ADD-VANTAGE 250 ML IV SCH ×3 (09:02→22:25)
[2019-08-31] MEDS: normal saline 1000ml 1,000 ML IV SCH ×2 (09:59→19:59)
[2019-08-31 11:00] VITALS: BP 117/60
[2019-08-31] MEDS: CefTRIAXone 2gm/D5W 50ml 50 ML IV SCH (11:01)
[2019-08-31] MEDS ORDERED: LACT1CAP26 PO (14:38)
[2019-08-31] MEDS ORDERED: MYC15CR TP (14:38)
[2019-08-31] MEDS ORDERED: METR500T PO (14:38)
[2019-08-31] MEDS ORDERED: CEFD300C3 PO (14:38)
[2019-08-31] MEDS ORDERED: DOXY-243 PO (14:38)
--- NOTE | 2019-08-31 15:06 | NUR ---
PRESSURE ULCER EDUCATION: DEFINITION: A pressure ulcer is an area of skin that breaks down when you stay in one position too long. The constant pressure against the skin reduces the blood flow to that area and the affected tissue dies. CAUSES: "Being bedridden or in a wheelchair "Fragile skin "Having a chronic condition, such as diabetes or vascular disease "Inability to move certain parts of your body without assistance "Older age "Incontinence of urine or stool SYMPTOMS: "A reddened area that DOES NOT turn white when pressed on - this can be the beginning of a pressure ulcer "A blister, deep sore or a crater - these can be advanced pressure ulcers FIRST AID: "Relieve the pressure on this area "Keep the area clean and dry "Call your primary doctor if you see any of the above symptoms "DO NOT massage the area "DO NOT use a donut shaped or ring shaped pillow- these actually interfere with the blood flow and cause complications PREVENTION: "Check for pressure ulcers everyday "Change position at least every two hours to relieve pressure "Use items that help relieve pressure- pillows, sheepskin, foam padding, and powders. "Keep skin clean and dry "Eat healthy well balanced meals "Exercise daily IF YOU SEE ANY OF THESE SYMPTOMS WHILE IN THE HOSPITAL - TELL YOUR NURSE IMMEDIATELY. IF YOU SEE ANY OF THESE SYMPTOMS WHILE AT HOME OR HAVE ANY QUESTIONS OR CONCERNS ABOUT PRESSURE ULCERS - CALL YOUR PRIMARY DOCTOR IMMEDIATELY. Addendum: 08/31/19 at 1506 by Mikey Begum RN Amended: Links added.
[2019-08-31 18:00] VITALS: BP 125/75
[2019-08-31] MEDS: HYDROcodone/acetaminophen 10/325mg tab PO PRN ×2 (18:02→22:23)
--- NOTE | 2019-08-31 18:05 | NUR ---
Patient in room [facility] 355. I have received report from Quinton RUSH and had the opportunity to ask questions and assume patient care.
--- NOTE | 2019-08-31 18:30 | NUR ---
Patient in room [facility] 355. I have received report from HUY RUSH and had the opportunity to ask questions and assume patient care.
[2019-09-01] VITALS: BP 110/70
--- NOTE | 2019-09-01 05:00 | NUR ---
Patient refused blood draw for labs
[2019-09-01] MEDS: normal saline 1000ml 1,000 ML IV SCH (05:59)
--- NOTE | 2019-09-01 06:48 | NUR ---
Problems reprioritized. Patient report given, questions answered & plan of care reviewed with Rose Mary RUSH.
[2019-09-01] MEDS: vancomycin/NS 1 GM ADD-VANTAGE 250 ML IV SCH (07:00)
[2019-09-01] MEDS: CefTRIAXone 2gm/D5W 50ml 50 ML IV SCH (07:57)
[2019-09-01] MEDS: K and/or MAG REPLACEMENT MC SCH (07:57)
[2019-09-01] MEDS: lactobacillus rhamnosus 10,000 MMU CELLS/CAPSULE PO SCH (07:58)
[2019-09-01] MEDS: heparin, porcine 5000 units/ml vial SQ SCH (07:58)
[2019-09-01] MEDS: NYSTATIN CREAM - 30GM TUBE TP SCH (07:58)
[2019-09-01] MEDS: metroNIDAZOLE 500mg tablet PO SCH ×2 (07:58→12:06)
[2019-09-01 08:05] VITALS: BP 126/67
[2019-09-01] MEDS ORDERED: BUPR150T8 PO (11:18)
[2019-09-01] MEDS ORDERED: buPROPion SR 150mg tablet PO ONE (11:30)
[2019-09-01 11:47] VITALS: BP 110/90
--- NOTE | 2019-09-01 12:00 | NUR ---
Patient refusing to have F/C d/c'd at this time. Pt stated, "I dont want to be incontinent and I want it to stay in and send me home with ray supplies." Explained to pt, MD ordered for it to be D/C'd and there is no medical reason it needs to stay in. Patient argued some more and stated, "maybe it can come out after lunch."
--- NOTE | 2019-09-01 13:30 | NUR ---
Discussed with Dr. Larson, pt refusing to have F/C d/c'd and wants to keep it in place, stated pt is to have f/c d/c'd no matter what. Will reattempt to talk to pt.
--- NOTE | 2019-09-01 14:16 | NUR ---
Pt still refusing to have F/C d/c'd. Pt pulling f/c up to chest saying, "no your not taking it out, I dont want to be incontinent and I'm not going anywhere." Informed munitions handler supervisor and she also spoke with pt. Pt still refusing.
--- NOTE | 2019-09-01 14:23 | NUR ---
Pt refusing to have wound dressings changed or pictures taken for discharge.
--- NOTE | 2019-09-01 15:15 | NUR ---
Security called to be at bedside to go over discharge paperwork. Discharge paperwork gone over with pt and signed. Pt was given the opportunity to ask questions. Provided pt with appropriate clothes for discharge. With security in room, Pt now agreed to have f/c d/c'd and for IV to be d/c'd. F/C d/c'd and IV taken out. Pt to have taxi called and provided by hospital to take to [place]. Pt wheeled down to lobby with own w/c. All belongings sent with pt, cell phones x3, tablet, chargers. Wound care supplies provided to pt and sack lunch given to pt. Pt also given bus passes. Pt has paper with information regarding community resources. Prescriptions called in to [facility] on . Taxi to go through drive through and pickling operator Rxs on way to [place]. Pt wheeled to front lobby by PCT and security alarm technician. Patient stated, "I will wait in the lobby for my taxi."
== END 2019-09-01 15:44 | disposition home or self-care (01) | DRG 602 ==
LOC: ER 11:01 → ED HOLD 15:59 → SUR 3N 17:14
PROVIDERS: ADMIT Family Medicine; ATTEND Family Medicine
DX: L03.116 Cellulitis of left lower limb (principal); L89.154 Pressure ulcer of sacral region, stage 4; N39.0 Urinary tract infection, site not specified; L97.919 Non-pressure chronic ulcer of unspecified part of right lower leg with unspecified severity; L97.929 Non-pressure chronic ulcer of unspecified part of left lower leg with unspecified severity; L03.115 Cellulitis of right lower limb; F17.210 Nicotine dependence, cigarettes, uncomplicated; F12.90 Cannabis use, unspecified, uncomplicated; B96.20 Unspecified Escherichia coli [E. coli] as the cause of diseases classified elsewhere; B96.4 Proteus (mirabilis) (morganii) as the cause of diseases classified elsewhere; F15.90 Other stimulant use, unspecified, uncomplicated; M62.3 Immobility syndrome (paraplegic); Z59.0 Homelessness; Z91.19 Patient's noncompliance with other medical treatment and regimen; Z93.3 Colostomy status; Z79.899 Other long term (current) drug therapy
CPT/HCPCS: 36415; 71045; 76937; 80053; 80202; 80305; 81001; 83605; 83735; 84100; 84145; 85025; 85610; 85730; 87040; 87070; 87077; 87081; 87088; 87186; 93005; 96365; 96366; 96375; 97161; 99285; G0378; J0692; J0696; J1200; J1644; J2270; J2405; J3370; J3490; J7030; J7050; Q0163

== ENCOUNTER 2019-09-04 09:57 | Observation (INO) | payer MEDICARE, MEDICAID ==
[~2019-09-04] VITALS: Ht 182.9 cm; Wt 68.2 kg
[~2019-09-04 09:57] MED LIST changes: +BUPR150T8 PO; +CEFD300C3 PO; +DOXY-243 PO; +LACT1CAP26 PO; +METR500T PO; +MYC15CR TP; -NO HOME MEDS
--- NOTE | 2019-09-04 11:59 | NUR ---
pt refuses to let nurse do a strait cath for UA. Mustapha SALAS IS aware
--- NOTE | 2019-09-04 12:07 | NUR ---
PICC NURSE AT BEDSIDE
--- NOTE | 2019-09-04 12:21 | NUR ---
SECURITY ON STANDBY, PT IS THREATENING THE PICC NURSE. "I CHARLINE HIT YOU IF YOU GO IN THAT SPOT".
--- NOTE | 2019-09-04 12:30 | NUR ---
pt will not keep telemonitor leads on. pt has been educated to the importance of heart monitoring when tachycardic.
[2019-09-04 12:44] LABS: BASOPHILS % (AUTO) 0.3 % (0-1); EOSINOPHILS % (AUTO) 0.2 % (0-6); HEMATOCRIT 33.3 % (42.0-52.0); HEMOGLOBIN 10.8 g/dl (14.0-17.9); LYMPHOCYTES % (AUTO) 11.6 % (21-51); MEAN CORPUSCULAR HEMOGLOBIN 24.3 PG (27.0-31.0); MEAN CORPUSCULAR HGB CONC 32.5 g/dL (33.0-36.5); MEAN CORPUSCULAR VOLUME 74.7 FL (78-98); MEAN PLATELET VOLUME 6.5 FL (7.4-10.4); MONOCYTES # (AUTO) 1.8 X10'3 (0-0.9); MONOCYTES % (AUTO) 10.8 % (2-12); NEUTROPHILS % (AUTO) 77.1 % (42-75); PLATELET COUNT 622 X10'3 (140-440); RED BLOOD COUNT 4.46 X10'6 (4.70-6.10); RED CELL DISTRIBUTION WIDTH 18.9 % (11.5-14.5); WHITE BLOOD COUNT 16.9 X10'3 (4.5-11.0)
[2019-09-04] MEDS ORDERED: normal saline 1000ML IV soln IV ONE (12:50)
[2019-09-04 12:58] LABS: PARTIAL THROMBOPLASTIN TIME 29 SECONDS (22-32)
[2019-09-04 13:01] LABS: ALANINE AMINOTRANSFERASE 29 U/L (12-78); ALBUMIN 2.7 G/DL (3.4-5.0); ALBUMIN/GLOBULIN RATIO 0.5 (1.1-1.5); ALKALINE PHOSPHATASE 135 IU/L (46-116); ANION GAP 11 (8-16); ASPARTATE AMINO TRANSFERASE 20 U/L (10-37); BILIRUBIN,TOTAL 0.2 MG/DL (0.1-1.0); BLOOD UREA NITROGEN 14 MG/DL (7-18); BUN/CREATININE RATIO 23.3 (5.4-32.0); CALCIUM 8.7 MG/DL (8.5-10.1); CHLORIDE 100 MMOL/L (99-107); GLUCOSE 96 MG/DL (70-104); POTASSIUM 3.6 MMOL/L (3.5-5.1); SODIUM 137 MMOL/L (135-145); TOTAL CARBON DIOXIDE 25.8 MMOL/L (24-32); eGFR > 90 ML/MIN
[2019-09-04] MEDS ORDERED: LORazepam 2 mg/ml vial IV ONE (13:05)
[2019-09-04 13:28] LABS: ANISOCYTOSIS 2+; MICROCYTOSIS 1+; PLATELET ESTIMATE INCREASED
[2019-09-04 13:29] LABS: HYPOCHROMASIA 1+
[2019-09-04] MEDS ORDERED: cefepime 1GM/NS ADD-VANTAGE 100 ML IV ONE ×2 (13:35→15:25)
[2019-09-04] MEDS ORDERED: vancomycin/NS 1 GM ADD-VANTAGE 250 ML IV ONE (13:35)
[2019-09-04] MEDS ORDERED: metroNIDAZOLE-Flagyl 500mg/NS 100 ML IV ONE (13:35)
[2019-09-04] MEDS ORDERED: cefepime 1GM in D5W 50mL 50 ML IV ONE (13:49)
[2019-09-04] MEDS ORDERED: BUPR150T8 PO (14:09)
[2019-09-04] MEDS ORDERED: DOXY-224 PO (14:09)
[2019-09-04] MEDS ORDERED: HYDR-3973 PO (14:09)
[2019-09-04] MEDS ORDERED: METR-159 PO (14:09)
--- NOTE | 2019-09-04 14:10 | NUR ---
pt will not keep telemonitor leads on. pt has been educated to the importance of heart monitoring when tachycardic.
[2019-09-04] MEDS ORDERED: CEFD300C21 PO (14:16)
[2019-09-04] MEDS ORDERED: LACTC PO (14:17)
[2019-09-04] MEDS ORDERED: MYC15CR TOP (14:19)
[2019-09-04] MEDS ORDERED: mag hydrox/Alum hydrox/simeth 30ml oral suspension PO PRN (14:50)
[2019-09-04] MEDS ORDERED: acetaminophen 325mg tablet PO PRN (14:50)
[2019-09-04] MEDS ORDERED: magnesium hydroxide 30ml (MOM) UD suspension PO PRN (14:50)
[2019-09-04] MEDS ORDERED: HYDROcodone/acetaminophen 5mg/325mg tablet PO PRN (14:50)
[2019-09-04] MEDS ORDERED: ondansetron/PF 4mg/2ml inj IV PRN (14:50)
--- NOTE | 2019-09-04 15:08 | NUR ---
SPOKE WITH DR ALBERTO. PLAN IS TO OBSERVE PATIENT OVERNIGHT AND DISCHARGE BACK TO [facility]. [facility]IM DECLINES TO SEE [facility] PATIENTS. [facility] MIGHT BE ABLE TO SEE PATIENT. I FAXED ORDERS AND CLINICAL INFORMATION TO YURIY AT [facility]. AWAITING RESPONSE. PATIENT HAS PREVIOUSLY BEEN SEEN AT [facility]. I ALSO LEFT WITH [facility], MIKE, TO SEE IF SHE MIGHT BE ABLE TO BE PCP FOR PATIENT. Addendum: 09/04/19 at 1511 by NATHALIA MIKE HAS BEEN CONTACTED TO SEE IF [facility] MIGHT BE PCP FOR PATIENT.
--- NOTE | 2019-09-04 15:52 | NUR ---
[facility] DECLINES TO TAKE THIS PATIENT DUE TO HIM BEING COMBATIVE IN A CONTROLLED ENVIRONMENT. THEY ARE CONCERNED FOR THE STAFF MEMBERS.
--- NOTE | 2019-09-04 15:58 | NUR ---
I FAXED REFERRAL TO HOME AND [facility]. AWAITING RESPONSE.
[2019-09-04] MEDS ORDERED: diphenhydrAMINE 25mg capsule PO PRN (16:15)
[2019-09-04] MEDS: normal saline 1000ml 1,000 ML IV SCH ×2 (16:32→18:15)
--- NOTE | 2019-09-04 16:35 | NUR ---
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 he wants benadryl which helps. called dr frye whom ordered benadryl Q8hrs po PRN
--- NOTE | 2019-09-04 16:41 | NUR ---
pt will not keep telemonitor leads on. pt has been educated nu,erous times at the importance of heart monitoring when tachycardic.
--- NOTE | 2019-09-04 16:45 | NUR ---
Received patient report from Nina RUSH in ER. All questions answered. Patient showing up on floor in the middle of receiving report.
[2019-09-04 17:00] VITALS: BP 96/59
--- NOTE | 2019-09-04 17:00 | NUR ---
Patient skin assessment and physical assessment performed patient oriented to room. Patient was given pain medication and 2RN skin check performed. Patient provided with food.
--- NOTE | 2019-09-04 17:28 | NUR ---
Patients specialty bed on order will be here tonight around 2100
--- NOTE | 2019-09-04 18:20 | NUR ---
Patient in room [facility]. I have received report from Nicki RUSH and had the opportunity to ask questions and assume patient care.
--- NOTE | 2019-09-04 18:24 | NUR ---
Patient refusing to be placed on specialty bed that has shown up. Patient was educated that this bed is going to be good for his wounds and that his wounds are not going to get any better on the bed he is on. Patient still refused to be put on specialty bed.
--- NOTE | 2019-09-04 18:46 | NUR ---
Problems reprioritized. Patient report given, questions answered & plan of care reviewed with Kimberley RUSH.
[2019-09-04 19:00] VITALS: BP 92/45
[2019-09-04] MEDS: NYSTATIN CREAM - 30GM TUBE TP SCH (22:00)
[2019-09-04] MEDS: heparin, porcine 5000 units/ml vial SQ SCH (22:00)
[2019-09-04] MEDS: metroNIDAZOLE 500mg tablet PO SCH (22:45)
[2019-09-04] MEDS: buPROPion SR 150mg tablet PO SCH (22:45)
[2019-09-05] MEDS: vancomycin/NS 1 GM ADD-VANTAGE 250 ML IV SCH ×2 (00:05→08:00)
[2019-09-05 04:30] VITALS: BP 98/59
--- NOTE | 2019-09-05 06:30 | NUR ---
Patient in room [facility] 351. I have received report from Kimberley RUSH and had the opportunity to ask questions and assume patient care.
--- NOTE | 2019-09-05 06:40 | NUR ---
Reported off to Quinton Ricardo.
--- NOTE | 2019-09-05 07:34 | NUR ---
This patient was very hard work last night with constant demands and then refusals of care that needed to be done. Pt. verbally agressive and rude calling names (swearing calling CALIBRATION CHECKER a c--t, and using the F word alot . Patient demanded different pain medication(stronger), a Mendez catheter to be placed. Called MD who stated that this was a day shift problem. Patient was s beligerent this AM that security called in order to for lab to try draw patient and for pictures of wounds to be taken. At one time, patient yelling so loudly from his room that another patient went in to see if they could help him. Patient picking and choosing what meds he would take and what he wouldnt' despite effortless education on this patient.
[2019-09-05] MEDS: metroNIDAZOLE 500mg tablet PO SCH (08:00)
[2019-09-05] MEDS ORDERED: HYDROcodone/acetaminophen 10/325mg tab PO SCH (08:00)
[2019-09-05] MEDS ORDERED: lactobacillus rhamnosus 10,000 MMU CELLS/CAPSULE PO SCH (08:00)
[2019-09-05] MEDS: heparin, porcine 5000 units/ml vial SQ SCH (08:00)
[2019-09-05] MEDS: buPROPion SR 150mg tablet PO SCH (08:00)
[2019-09-05] MEDS: NYSTATIN CREAM - 30GM TUBE TP SCH (08:00)
[2019-09-05] MEDS: normal saline 1000ml 1,000 ML IV SCH (10:48)
--- NOTE | 2019-09-05 10:50 | NUR ---
Patient refused AM vitals. Addendum: 09/05/19 at 1050 by Vandana Peña RN Amended: Links added.
--- NOTE | 2019-09-05 11:00 | NUR ---
PRESSURE ULCER EDUCATION: DEFINITION: A pressure ulcer is an area of skin that breaks down when you stay in one position too long. The constant pressure against the skin reduces the blood flow to that area and the affected tissue dies. CAUSES: "Being bedridden or in a wheelchair "Fragile skin "Having a chronic condition, such as diabetes or vascular disease "Inability to move certain parts of your body without assistance "Older age "Incontinence of urine or stool SYMPTOMS: "A reddened area that DOES NOT turn white when pressed on - this can be the beginning of a pressure ulcer "A blister, deep sore or a crater - these can be advanced pressure ulcers FIRST AID: "Relieve the pressure on this area "Keep the area clean and dry "Call your primary doctor if you see any of the above symptoms "DO NOT massage the area "DO NOT use a donut shaped or ring shaped pillow- these actually interfere with the blood flow and cause complications PREVENTION: "Check for pressure ulcers everyday "Change position at least every two hours to relieve pressure "Use items that help relieve pressure- pillows, sheepskin, foam padding, and powders. "Keep skin clean and dry "Eat healthy well balanced meals "Exercise daily IF YOU SEE ANY OF THESE SYMPTOMS WHILE IN THE HOSPITAL - TELL YOUR NURSE IMMEDIATELY. IF YOU SEE ANY OF THESE SYMPTOMS WHILE AT HOME OR HAVE ANY QUESTIONS OR CONCERNS ABOUT PRESSURE ULCERS - CALL YOUR PRIMARY DOCTOR IMMEDIATELY. Addendum: 09/05/19 at 1102 by Mikey Begum RN Amended: Links added.
--- NOTE | 2019-09-05 14:08 | NUR ---
Pt with low Bert 11, per WOC notes pt with multiple unstageable wounds including a stage III PU to right 3rd toe. Pt previously admitted and seen by RD for written and verbal protein education and RD contact information. D/w dietary to send double eggs with breakfast and double meat BIDLD for increased protein needs. Pt on heart healthy diet documented with 100% PO intake. Pt currently pending d/c. Will f/u and assess need for additional protein if pt remains admitted. Addendum: 09/05/19 at [address] Amended: Links added.
--- NOTE | 2019-09-05 15:00 | NUR ---
[facility] as well with his other home medications. Patient reminded of 0930 wound care appintment in the morning. Patient is follow with out patient woundcare for therapy. Patient IV taken out at time of discharge and site showed minimal bleeding and canula was whole and intact upon removal. Patient heel injury open to air at time of tranfer to wheel chair opened and was cleaned with saline the wound cleanser spray ulcer was covered with hydrophilic dressing and wrapped to keep in place loosly with kerlex. patient was taken to lobby in private wheelchair.
[2019-09-05] MEDS ORDERED: VANCOMYCIN LEVEL IV ONE (15:30)
== END 2019-09-05 14:22 | disposition home or self-care (01) ==
LOC: ER 09:58 → ED HOLD 15:24 → SUR 3N 17:21
PROVIDERS: ADMIT Family Medicine; ATTEND Family Medicine
DX: L89.90 Pressure ulcer of unspecified site, unspecified stage (principal); L03.90 Cellulitis, unspecified; A41.9 Sepsis, unspecified organism; G82.20 Paraplegia, unspecified; F17.210 Nicotine dependence, cigarettes, uncomplicated; Z93.3 Colostomy status; Z59.0 Homelessness; Z99.3 Dependence on wheelchair; Z91.19 Patient's noncompliance with other medical treatment and regimen; Z79.899 Other long term (current) drug therapy; Z88.0 Allergy status to penicillin
CPT/HCPCS: 36415; 71045; 80053; 83605; 83735; 84145; 85025; 85610; 85730; 87040; 87081; 93005; 96365; 96366; 96367; 96368; 99284; G0378; J0692; J1644; J2060; J3370; J3490; J7030; Q0163

== ENCOUNTER 2019-09-27 04:30 | Emergency (ER) | payer MEDICARE, MEDICAID ==
[~2019-09-27] VITALS: Ht 147.3 cm; Wt 60.0 kg
[~2019-09-27 04:30] MED LIST changes: +CEFD300C21 PO; -CEFD300C3 PO; +DOXY-224 PO; -DOXY-243 PO; +HYDR-3973 PO; -LACT1CAP26 PO; +LACTC PO; +METR-159 PO; -METR500T PO; +MYC15CR TOP; -MYC15CR TP
--- NOTE | 2019-09-27 05:20 | NUR ---
pt stated that its going to be a cold winter, he will need somewhere to stay , he will need his dressings taken care of he can not do it , pt states that he knows what to stay to spend a few days in any facility " all i need to do is get a 5150 " pt denies sucidalidealation, at this time, but continue to obcess on wher he can stay .
--- NOTE | 2019-09-27 05:40 | NUR ---
pt dressings to both feet with minimal sero sangious drainage removed and redressed in addition to the dressing to his left thigh and penis. with all dressing , the xerofrom was left in place , that was applied 09/26/19 per pt at [facility] wound care. pt verbalizes [facility] wound care is caring for his wounds and that he needs the dressings changed . pt states that he feels he should have not be discharged from [facility], his wounds need attention he can not provide, pt was advised to return to [facility] for revaluation . pt was provided a taxi to [facility] wound care [address] [place] . pt states he is currrently living on the the streets for the last few month since he was discharge from [facility], when his brother left the area to [place] , prior to his [facility] discharge. pt states his mother lives [facility] , but her home is full and not an option for him. pt verbalized understanding on how to keep wound clean and where to follow up pt given new arm pants - 2 pairs, charged his phone, pt had multiple jackets and a beanie and slippers . had no questions regarding current disxcharge . was clear he needed to follow up with [facility] wound care for his dressing chnages, no questions asked. pt left er after self transfer to wheelchair and wheeling himself to the lobby to await yellow cab to take him to his current desination for treatment of his wounds
--- NOTE | 2019-09-27 06:08 | NUR ---
pt was given written material of [facility] for help with food , [facility], penitentiary, and services that might be able to assit him in getting his id and prescriptions
[2019-09-27 06:10] VITALS: BP 106/68
== END 2019-09-27 05:40 | disposition home or self-care (01) ==
LOC: EDBD → ER 04:30
DX: M25.552 Pain in left hip (principal); Z93.3 Colostomy status; Z86.14 Personal history of Methicillin resistant Staphylococcus aureus infection; Z59.0 Homelessness; Z88.0 Allergy status to penicillin; Z79.899 Other long term (current) drug therapy; X50.1XXA Overexertion from prolonged static or awkward postures, initial encounter; Y93.89 Activity, other specified; Y92.89 Other specified places as the place of occurrence of the external cause; Y99.8 Other external cause status
CPT/HCPCS: 99284

== ENCOUNTER 2019-09-27 10:04 | Emergency (ER) | payer MEDICARE, MEDICAID ==
[~2019-09-27] VITALS: Ht 210.8 cm; Wt 61.4 kg
[2019-09-27] MEDS ORDERED: ketorolac trometh. 30mg/ml inj. IV ONE (12:35)
[2019-09-27 13:27] LABS: BASOPHILS % (AUTO) 0.3 % (0-1); EOSINOPHILS # (AUTO) 0.2 X10'3 (0-0.9); EOSINOPHILS % (AUTO) 1.5 % (0-6); HEMATOCRIT 34.5 % (42.0-52.0); HEMOGLOBIN 11.2 g/dl (14.0-17.9); LYMPHOCYTES # (AUTO) 1.5 X10'3 (1.1-4.8); LYMPHOCYTES % (AUTO) 10.5 % (21-51); MEAN CORPUSCULAR HEMOGLOBIN 24.4 PG (27.0-31.0); MEAN CORPUSCULAR HGB CONC 32.4 g/dL (33.0-36.5); MEAN CORPUSCULAR VOLUME 75.2 FL (78-98); MEAN PLATELET VOLUME 6.3 FL (7.4-10.4); MONOCYTES # (AUTO) 0.8 X10'3 (0-0.9); MONOCYTES % (AUTO) 6.1 % (2-12); NEUTROPHILS # (AUTO) 11.3 X10'3 (1.8-7.7); NEUTROPHILS % (AUTO) 81.6 % (42-75); PLATELET COUNT 343 X10'3 (140-440); RED BLOOD COUNT 4.59 X10'6 (4.70-6.10); RED CELL DISTRIBUTION WIDTH 17.6 % (11.5-14.5); WHITE BLOOD COUNT 13.8 X10'3 (4.5-11.0)
--- NOTE | 2019-09-27 13:27 | NUR ---
WOUND CARE TO FEET, [facility] SENT, ATTEMPTING TO FIND OSTOMY SUPPLIES FROM [facility].
[2019-09-27 13:36] LABS: CLARITY,URINE CLEAR (Clear); COLOR,URINE YELLOW (Yellow); GLUCOSE, URINE NEGATIVE (Neg); KETONES,URINE NEGATIVE (Neg); LEUKOCYTE ESTERASE ,URINE NEGATIVE (Neg); NITRITES, URINE NEGATIVE (Neg); OCCULT BLOOD,URINE NEGATIVE (Neg); PH,URINE 5.5 (4.8-8.0); PROTEIN,URINE NEGATIVE (Neg); UROBILINOGEN,URINE 0.2 E.U/dL (0.2-1.0)
[2019-09-27 13:39] LABS: UA COLLECTION TYPE INDWELLING CATH
[2019-09-27 13:44] LABS: ALANINE AMINOTRANSFERASE 31 U/L (12-78); ALBUMIN 2.9 G/DL (3.4-5.0); ALBUMIN/GLOBULIN RATIO 0.5 (1.1-1.5); ALKALINE PHOSPHATASE 128 IU/L (46-116); ANION GAP 8 (8-16); ASPARTATE AMINO TRANSFERASE 20 U/L (10-37); BILIRUBIN,TOTAL 0.1 MG/DL (0.1-1.0); BLOOD UREA NITROGEN 24 MG/DL (7-18); BUN/CREATININE RATIO 45.3 (5.4-32.0); CALCIUM 8.6 MG/DL (8.5-10.1); CHLORIDE 102 MMOL/L (99-107); CREATININE 0.53 MG/DL (0.60-1.10); GLUCOSE 117 MG/DL (70-104); POTASSIUM 4.3 MMOL/L (3.5-5.1); SODIUM 138 MMOL/L (135-145); TOTAL CARBON DIOXIDE 28.2 MMOL/L (24-32); TOTAL PROTEIN 8.3 G/DL (6.4-8.2); eGFR > 90 ML/MIN
[2019-09-27 14:37] VITALS: BP 122/64
[2019-09-27 15:15] LABS: URINE AMPHETAMINE SCREEN NEGATIVE (Neg); URINE BARBITUATE SCREEN NEGATIVE (Neg); URINE BENZODIAZEPINES SCREEN POSITIVE (Neg); URINE CANNABINOID SCREEN POSITIVE (Neg); URINE COCAINE SCREEN NEGATIVE (Neg); URINE METHADONE SCREEN NEGATIVE (Neg); URINE OPIATE SCREEN POSITIVE (Neg); URINE PHENCYCLIDINE SCREEN NEGATIVE (Neg)
--- NOTE | 2019-09-27 16:19 | NUR ---
WENT IN TO DISCUSS PTS OSTOMY SUPPLIES, PT WAS DRESSED WITH A CIGARETTE IN HIS MOUTH STATING, "IM GOING OUTSIDE TO SMOKE AND YOU CANT STOP ME". PT WENT OUT THE AMBULANCE DOORS ANGRILY EVEN THOUGH HE WAS ASKED NOT TO. UNKNOWN IF PT RETURNING. ADVISED.
== END 2019-09-27 16:54 | disposition left against medical advice (07) ==
LOC: EDBD 10:05 → ER 10:05
DX: L97.529 Non-pressure chronic ulcer of other part of left foot with unspecified severity (principal); L97.519 Non-pressure chronic ulcer of other part of right foot with unspecified severity; D72.829 Elevated white blood cell count, unspecified; G82.20 Paraplegia, unspecified; G89.29 Other chronic pain; Z86.14 Personal history of Methicillin resistant Staphylococcus aureus infection; Z59.0 Homelessness; Z88.0 Allergy status to penicillin; Z79.899 Other long term (current) drug therapy
CPT/HCPCS: 36415; 71045; 80053; 80305; 81003; 83605; 83735; 84145; 85025; 87040; 93005; 96374; 99284; J1885